=== PATIENT | female | born 1930 | race Caucasian/White ===

== ENCOUNTER 2017-03-26 21:14 | Inpatient (IN) | payer MEDICARE ==
[~2017-03-26] VITALS: Ht 160 cm; Wt 62.6 kg
[~2017-03-26 21:14] MED LIST: ALBU18HF IH; ALEN70TA46 PO; AMLO10TA3 PO; ATOR40TA69 PO; CALC600T12 PO; CHOL10008 PO; FERR240T5 PO; FLUT12AE8 IH; LEVO75TA36 PO; LISI-567 PO; LOPE2TAB32 PO; LORA-302 PO; METO-272 PO; MULT-1073 PO; NITR0.4T6 SL; OMEP20CA11 PO
[2017-03-26 21:20] VITALS: BP 166/78; PULSE 63; RESP 12; O2SAT 97
[2017-03-26 21:27] VITALS: BP 148/96; PULSE 61; RESP 28; O2SAT 97
--- NOTE | 2017-03-26 21:36 | ED.REPORT ---
HPI-Chest Pain 40 and Over Date of Service Mar 26, 2017 ED Provider: Finesse Martins MD The pt is an 86 y/o female with an extensive hx including hypothyroidism, HTN, asthma, and cardiovascular disease (with 3 stents) who presents to the ED complaining of gradual onset of waxing and waning chest pain since this afternoon. She describes it as a "choking feeling" and rates it 8/10 at its maximum. She took a Nitro which helped temporarily but her pain returned at 6/ 10 in severity just prior to arrival. Associated sx include back pain between her shoulder blades and shortness of breath for the last two days. The pt also took Albuterol prior to arrival but it did not provide any relief. She also reports mild abdominal pain. She denies cough, nausea, vomiting, and diaphoresis. She has never experienced similar sx before. Treadle Cut Off Saw Operator: Dr. Tierney Nursing Notes Stated Complaint: TROUBLE BREATHING, BACK PAIN Chief Complaint: Chest Pain Nursing Notes Reviewed: Yes Allergies: Coded Allergies: No Known Allergies (Verified Allergy, Unknown, 11/07/15) Scheduled Alendronate/Vitamin D3 (Alendronate/Vitamin D3) 1 Each Tablet 70 MG PO Q Saturday Amlodipine (Amlodipine) 10 Mg Tablet 10 MG PO QAM Atorvastatin Calcium (Atorvastatin Calcium) 40 Mg Tablet 40 MG PO HS Calcium Carbonate (Calcium) 600 Mg Tablet 600 MG PO QAM Cholecalciferol (Vitamin D3) (Vitamin D3) 1,000 Unit Tab.chew 1,000 UNIT PO BID Ferrous Gluconate (Ferrous Gluconate) 240 Mg Tablet 27 MG PO BID Levothyroxine (Levoxyl) 75 Mcg Tablet 75 MCG PO QAM Lisinopril (Lisinopril) 20 Mg Tablet 20 MG PO QAM Metoprolol Succinate ER (Metoprolol Succinate ER) 25 Mg Tab.er.24h 12.5 MG PO DAILY Multivits-Min/FA/Lycopene/Lut (Centrum Silver Tablet) 1 Each Tablet 1 EACH PO QAM Omeprazole (Omeprazole) 20 Mg Capsule.dr 20 MG PO BID Scheduled PRN Albuterol Sulfate (Ventolin HFA Inhaler) 200 Puff/18 Gm Inhaler 1 PUFF IH PRN For Shortness of Breath Fluticasone Propionate (Flovent HFA 110 mcg) 12 Gm Aer.w.adap 1 PUFF IH PRN For Shortness of Breath Lorazepam (Ativan) 0.5 Mg Tablet 0.5-1 MG PO HS PRN PRN Insomnia Nitroglycerin SL (Nitroglycerin SL) 0.4 Mg Tab.subl 0.4 MG SL PRN For Chest Pain Miscellaneous Medications Calcium Carbonate (Calcium) 600 Mg Tablet 600 MG PO Vit C/Vit E/Lutein/Min/Monroe-3 (Ocuvite Softgel) 1 Each Capsule 1 EACH PO General Time Seen by MD: 21:21 Chief Complaint Chest pain Hx Obtained From: Patient Arrived By: Walk-in Sudden in Onset?: Yes Onset Occurred: 5 - 8 hours ago Symptom Duration: Waxes and wanes Location: : Back: Substernal Quality: Painful Severity: Current: Pain level 6 out of 10 Severity: Maximum: Pain level 8 out of 10 Recent Healthcare: No recent doctor visit Similar Sx Previous: No Past Medical History Past Medical History PAD poor circulation asthma blood transfusions (2 units per week) for years after surgery, ended recently peripheral and central cardiovascular disease 3/6 systolic murmur hypothyroidism pneumonia arthritis COPD HTN Past Surgical History spinal stenosis cataract removal, both eyes partial colon resection renal and coronary stents (3) peripheral stents appendectomy partial hysterectomy tonsillectomy cholecystectomy tonsillectomy Smoking History Former Smoker Social History Drinks a glass of wine twice per year Alcohol Use: Denies alcohol use Other Social History: Lives alone Ambulatory Status Independent Review of Systems Respiratory: Reports: Shortness of breath, Denies: Non-productive cough Cardiovascular: Reports: Chest pain GI: Reports: Abdominal pain (mild), Denies: Nausea, Vomiting Musculoskeletal: Reports: Back pain Skin: Denies Diaphoresis Complete sys rev & neg: except as marked. Physical Exam Initial Vital Signs Vital Signs (First) Date Time Temp Pulse Resp B/P Pulse Ox O2 Delivery O2 Flow Rate FiO2 03/26/17 21:20 36.6 63 12 166/78 97 Room Air 03/27/17 01:06 2 Initial VS: Reviewed Head / Eyes: Atraumatic, Normocephalic ENT: Mucous membranes moist, Conjunctiva normal, No scleral icterus Extremities: Vascular intact, Neuro intact, No swelling, No tenderness Skin: Warm, Dry, No cyanosis Neurologic: Alert, Oriented, Nonfocal General/Constitutional: Awake, Alert, No acute distress, Well appearing, Cooperative No diaphoresis Respiratory / Chest: Atraumatic, Breath sounds = bilat, No rales, No rhonchi Wheezing / Retractions: Positive: Wheezing mild (Bilaterally) Cardiovascular: Heart rate NL, Regular rhythm, Heart sounds NL, No gallop, No murmurs, No rubs No lower extremity edema Abdomen: Atraumatic, Soft Mid abdomen is mildly tender Neck: Atraumatic, Supple, Full range of motion, No JVD Wrist / Hand: Neurologic intact, Vascular intact Left wrist in a cast. Interpretation & Diagnostics CT ANGIO ABD AND CHEST Chest: Conclusion: 1. No evidence of pulmonary embolism or thoracic aortic dissection. 2. 2cm opacity in the right lung apex could be part of the bilateral apical scarring although malignancy is not entirely excluded. CT followup in 1 to 3 months is recommended. Abdomen: Conclusion: No abdominal aortic dissection. Signed by Dr. Dov Venegas 03/27/17 01:51 Lab Results Interpretation Result Diagram: 03/27/17 0425 03/27/17 0425 Test 03/26/17 21:45 Prothrombin Time 10.0sec (8.1-12.5) Prothromb Time International Ratio 0.94ratio Activated Partial Thromboplast Time 27.1sec (22.8-33.0) D-Dimer 2.11mg/L FEU (<0.50) Total Bilirubin 0.2mg/dL (0.0-1.2) Aspartate Amino Transf (AST/SGOT) 24U/L (0-50) Alanine Aminotransferase (ALT/SGPT) 13U/L (0-32) Alkaline Phosphatase 64U/L (25-165) Total Creatine Kinase 170U/L (21-215) Creatine Kinase MB 7.1ng/mL (0.0-5.3) Creatine Kinase MB % 4.2% (0.0-5.0) Pro-B-Type Natriuretic Peptide 474.5pg/mL (0-738) Total Protein 6.9g/dL (6.4-8.4) Albumin 4.2g/dL (3.4-5.0) Hold Saha Top Tube Received (Received) Digoxin Level 0.3nG/mL (0.9-2.0) ECG Interpretation ECG Interpretation: Normal sinus rhythm. Rate 63. Right bundle branch block. No significant changes from previous ECG. Time: 21:21 Interpreted by: ED physician X-Ray Chest Interpretation Chest Xray Interpretation: IMPRESSION: Acute disease is not seen in the upright portable chest. Dictated by: Damon Waddell M.D. on 03/26/2017 at 22:01 Approved by: Damon Waddell M.D. on 03/26/2017 at 22:02 View: Portable, 1 view Interpretation / Wet Read by: Interpret - Radiologist Re-Eval/Medical Decision Med Decision/Clinical Course 86-year-old female with known coronary disease and three stents presents with pain in her back between her shoulder blades and chest pressure. EKG does not show STEMI criteria but is a right bundle-branch block. Chest x-ray is benign. D-dimer is elevated. CT angiogram dissection protocol looking for pulmonary embolus and dissection was negative for these issues. Incidental upper lung lesions require follow-up. Pain is been waxing and waning but responding to morphine. Admitted now for completion of rule out rule out protocol with a slightly elevated troponin. She has renal insufficiency was prehydrated for her dye study, and requires additional hydration post. Source of Hx: Old records Time of Eval: 01:38 Re-Evaluation/Progress Note: Rechecked pt. Discussed lab results, imaging results,diagnosis and plan to admit. Pt understands and agrees with the plan for admission. All questions addressed. Consultation : Referral / Consult Name: Audelia Bernal DO Consulted With: Hospitalist Call Returned at: 02:06 Bedspring Assembler: Will see patient, Agrees with eval, Agrees with plan, Accepts admit Counseled Regarding: Diagnosis, Lab results, Need for admission Discharge & Departure Primary Impression: Chest pain Additional Impressions: Asthma Elevated troponin Renal insufficiency Disposition: ADMITTED TO HOSPITAL Discharge Condition All VS Reviewed: Yes Condition: Improved Referrals: Maxi Soriano MD (PCP) Taty Tierney MD Crit Care Except Billable Proc Time Spent: 30-74 minutes (thirty minutes) Services Performed: Patient management by me, Time spent at bedside, Reviewing test results, Reviewing imaging, Discussing patient care, Documentation in record, Time with fam/surrogate, Other (arranging admission) Scribe Attestation Portions of this note were transcribed by Wilda Butts. I,, personally performed the history, physical exam and medical decision-making;I reviewed and confirmed the accuracy of the information in the transcribed note. Signed by Maribell Saxena. 03/26/17 copies to: Maxi Soriano MD; Taty Tierney MD, Christopher W MD Mar 26, 2017 21:36 Wilda Butts Mar 26, 2017 21:53 ECG Interpretation ECG Interpretation: Normal sinus rhythm. Rate 63. Right bundle branch block. No significant changes from previous ECG. Time: 21:21 Interpreted by: ED physician X-Ray Chest Interpretation Chest Xray Interpretation: IMPRESSION: Acute disease is not seen in the upright portable chest. Dictated by: Damon Waddell M.D. on 03/26/2017 at 22:01 Approved by: Damon Waddell M.D. on 03/26/2017 at 22:02 View: Portable, 1 view Interpretation / Wet Read by: Interpret - Radiologist Re-Eval/Medical Decision Source of Hx: Old records Time of Eval: 01:38 Re-Evaluation/Progress Note: Rechecked pt. Discussed lab results, imaging results,diagnosis and plan to admit. Pt understands and agrees with the plan for admission. All questions addressed. Consultation : Referral / Consult Name: Audelia Bernal DO Consulted With: Hospitalist Call Returned at: 02:06 Bedspring Assembler: Will see patient, Agrees with eval, Agrees with plan, Accepts admit Counseled Regarding: Diagnosis, Lab results, Need for admission Discharge & Departure Primary Impression: Chest pain Additional Impression: Asthma Ruled Out: Myocardial infarct Disposition: ADMITTED TO HOSPITAL Discharge Condition All VS Reviewed: Yes Referrals: Maxi Soriano MD (PCP) Taty Tierney MD Attestation Portions of this note were transcribed by Wilda Butts. I,, personally performed the history, physical exam and medical decision-making;I reviewed and confirmed the accuracy of the information in the transcribed note. Signed by Maribell Saxena. 03/26/17 copies to: Maxi Soriano MD; Taty Tierney MD, Christopher W MD Mar 26, 2017 21:36 Wilda Butts Mar 26, 2017 21:53
[2017-03-26] MEDS ORDERED: Nitroglycerin 2% 1 Gm Ointment TOPICAL ONE (21:50)
[2017-03-26 21:57] LABS: BASOPHILS % (AUTO) 0.5 % (0-3); EOSINOPHILS % (AUTO) 1.6 % (0-5); MONOCYTES % (AUTO) 10.3 % (4-12); Mean Corpuscular Hemoglobin 29.5 pg (27.0-35.0); Mean Corpuscular Volume 91.9 fL (81-100); NEUTROPHILS % (AUTO) 71.4 % (40-74); Platelet Count 296 bil/L (150-400)
--- NOTE | 2017-03-26 22:04 | DRSVH ---
PROCEDURE: X-RAY CHEST ONE VIEW, PORTABLE ([id number]) INDICATIONS: CHEST PAIN TECHNIQUE: One view of the chest was acquired. COMPARISON: [facility], CR, XR CHEST 2VW, 11/09/2015, 13:52. FINDINGS: Surgical changes and devices: bakery helper leads are present over the chest Lungs and pleura: No pleural effusions or pneumothorax. Lungs are clear. Mediastinum: Mediastinal contours appear normal. Heart size is normal. Bones and chest wall: No suspicious bony lesions. Overlying soft tissues appear unremarkable. IMPRESSION: Acute disease is not seen in the upright portable chest. Dictated by: Damon Wadedll M.D. on 03/26/2017 at 22:01 Approved by: Damon Waddell M.D. on 03/26/2017 at 22:02
[2017-03-26] MEDS: MeTOProlol 1 mg/mL 5 mL Inj IVPUSH PRN (22:05)
[2017-03-26 22:08] VITALS: BP 86/46; PULSE 62; RESP 20; O2SAT 94
[2017-03-26 22:16] LABS: D-Dimer 2.11 mg/L FEU (<0.50); INR 0.94 ratio
[2017-03-26 22:44] LABS: TROPONIN T 0.011 ug/L (0.0-0.011)
[2017-03-26 22:53] LABS: Magnesium 2.1 mg/dL (1.6-2.6)
[2017-03-26 22:56] VITALS: BP 144/71; PULSE 59; RESP 20; O2SAT 97
[2017-03-26 23:05] VITALS: BP 92/48; PULSE 73; RESP 18; O2SAT 94
[2017-03-26] MEDS ORDERED: 0.9% Sodium Chloride 1,000 ML IV ONE (23:25)
[2017-03-27] VITALS (12 sets, daily range): BP systolic 94–176; BP diastolic 52–90; PULSE 47–83; RESP 16–24; O2SAT 92–100
[2017-03-27] MEDS: MeTOProlol 1 mg/mL 5 mL Inj IVPUSH PRN ×2 (01:06→01:12)
[2017-03-27] MEDS ORDERED: Ondansetron 2 mg/mL 2 mL Inj IVPUSH PRN ×2 (02:20→02:25)
[2017-03-27] MEDS ORDERED: Polyethylene Glycol (PEG) 17 Gm Powder PO PRN (02:20)
[2017-03-27] MEDS ORDERED: Senna-Docusate 8.6-50 mg Tablet PO PRN (02:20)
[2017-03-27] MEDS ORDERED: Alum-Mag Hydrox-Simeth 30 mL Suspension PO PRN ×2 (02:20→02:25)
[2017-03-27] MEDS ORDERED: Lactated Ringer's 1,000 ML IV SCH (02:21)
[2017-03-27] MEDS ORDERED: diphenhydrAMINE 25 mg Capsule PO PRN (03:30)
[2017-03-27] MEDS: 0.9% Sodium Chloride 1,000 ML IV SCH ×2 (03:33→10:51)
--- NOTE | 2017-03-27 03:42 | PCM.HPMED ---
Subjective Date of Service Mar 27, 2017 Primary Provider: Admitting Physician: Audelia Bernal DO Primary Care Physician: Maxi Soriano MD Attending Physician: Audelia Bernal DO Chief Complaint: Stabbing back pain History of Present Illness: 86-year-old woman with history of coronary artery disease status post 3 stent placement, chronic GI bleeding necessitating blood transfusion every 4-6 weeks for the last 12 years, peripheral artery disease, hypertension, hypothyroidism, COPD, presents after having 8 out of 10 stabbing back pain. She describes it as awakening her from sleep earlier this afternoon felt like there is something in her back and she tried to ignore it however it continued to grow in intensity , 2 hours after onset of pain she took nitroglycerin which she said helped the pain. She contacted her daughter who advised her to go to the emergency department, and while in the emergency department she began to once again have stabbing back pain. She additionally describes having a choking sensation that has been coming and going over the last 4 days, described as "I could not catch my breath." She endorsed shortness of breath, and took a puff of her albuterol inhaler but said that it did not help. She is not on any blood thinners secondary to her chronic blood loss anemia. She reports that in the previous weeks her hemoglobin and hematocrit had remained stable and she has not needed a transfusion. She denies any lightheadedness, dizziness, cough, endorses diarrhea, denies any red or black stools. In the emergency department she was given nitroglycerin metoprolol 5 mg IV 3, 81 mg aspirin by mouth, and at the time of admission states that she feels a mild discomfort in her anterior chest but not a pain. On presentation to the emergency department 36.6 Celsius, 63, 12, 166/78, 97% on room air. Blood pressure decreased and is now in the low 100s, mid 90s systolic. Heart rate has mostly been below 60, she states this is normal and denies any symptoms. WBC 9.6, hemoglobin 9.8. Bicarbonate 16, BUN 43, creatinine 1.66, glucose 106. CK-MB 7.1, troponin 0.011, BNP 474. INR 0.94, d-dimer 2.11 digoxin 0.3 EKG: Heart rate 63, normal sinus, left axis deviation, right bundle branch block , VT 204, QTC 452, T-wave inversions in leads V1, V2. Chest x-ray did not show acute disease. Chest and abdomen CT with contrast are performed to evaluate for pulmonary embolism, aortic dissection, these were interpreted as negative for both. Patient was admitted to [facility] on telemetry for further evaluation unstable angina. Review of Systems: A comprehensive review of systems was conducted with the patient and found to be negative except as above in the history of presenting illness. Allergies Coded Allergies: No Known Allergies (Verified Allergy, Unknown, 11/07/15) Home Medications Scheduled Alendronate/Vitamin D3 (Alendronate/Vitamin D3) 1 Each Tablet 70 MG PO Q Saturday Amlodipine (Amlodipine) 10 Mg Tablet 10 MG PO QAM Atorvastatin Calcium (Atorvastatin Calcium) 40 Mg Tablet 40 MG PO HS Calcium Carbonate (Calcium) 600 Mg Tablet 600 MG PO QAM Cholecalciferol (Vitamin D3) (Vitamin D3) 1,000 Unit Tab.chew 1,000 UNIT PO BID Ferrous Gluconate (Ferrous Gluconate) 240 Mg Tablet 27 MG PO BID Levothyroxine (Levoxyl) 75 Mcg Tablet 75 MCG PO QAM Lisinopril (Lisinopril) 20 Mg Tablet 20 MG PO QAM Metoprolol Succinate ER (Metoprolol Succinate ER) 25 Mg Tab.er.24h 12.5 MG PO QAM Multivits-Min/FA/Lycopene/Lut (Centrum Silver Tablet) 1 Each Tablet 1 EACH PO QAM Omeprazole (Omeprazole) 20 Mg Capsule.dr 20 MG PO BID Scheduled PRN Albuterol Sulfate (Ventolin HFA Inhaler) 200 Puff/18 Gm Inhaler 1 PUFF IH PRN For Shortness of Breath Fluticasone Propionate (Flovent HFA 110 mcg) 12 Gm Aer.w.adap 1 PUFF IH PRN For Shortness of Breath Loperamide (Loperamide) 2 Mg Tablet 2 MG PO PRN For Diarrhea or Loose Stool Lorazepam (Ativan) 0.5 Mg Tablet 0.5-1 MG PO HS PRN PRN Insomnia Nitroglycerin SL (Nitroglycerin SL) 0.4 Mg Tab.subl 0.4 MG SL PRN For Chest Pain PMH PAD poor circulation asthma blood transfusions (2 units per week) for years after surgery, ended recently peripheral and central cardiovascular disease 3/6 systolic murmur hypothyroidism pneumonia arthritis COPD HTN Surgical History spinal stenosis cataract removal, both eyes partial colon resection renal and coronary stents (3) peripheral stents appendectomy partial hysterectomy tonsillectomy cholecystectomy Family History Mother when patient was 3 months old, reports significant cardiovascular mortality on her side of the family Father and his 5 brothers from myocardial infarctions, father's age of 76. Social History Hx Alcohol Use: Yes (On special occasion only) Hx Substance Use: No Hx Tobacco Use: Yes (quit 30 plus years ago) Smoking Status: Former Smoker (quit in 1989) Exam Vital Signs Vital Sign - Last Date Time Temp Pulse Resp B/P Pulse Ox O2 Delivery O2 Flow Rate FiO2 03/27/17 02:23 50 22 95/52 97 Nasal Cannula 2 03/26/17 21:20 36.6 Intake and Output 03/26/17 03/26/17 03/27/17 Cumulative From/Thru 15:00 23:00 07:00 03/26/17 21:20 - 03/27/17 03:20 Intake Total 999 ml 999 ml Balance 999 ml 999 ml Intake IV Total 999 ml 999 ml Exam General: Laying in bed, no apparent distress. Appears age-appropriate HEENT: Normocephalic, atraumatic, EOMI grossly, neck is supple with out lymphadenopathy, mucous membranes moist conjunctiva pale-pink. Cardiovascular: Regular rate and rhythm, up-stroking 3/6 systolic murmur throughout precordium. Unable to appreciate dorsal pedalis bilaterally, right radial pulse 2/4, orthopedic cast obstructing left radial artery assessment. Feet were warm. Pulmonary: Clear to auscultation bilaterally, expiratory wheeze throughout lung berumen, no rhonchi, no cough. Abdominal: Soft to palpation, bowel sounds present 4, no hepatosplenomegaly. Negative rebound. No pulsating masses Extremities: No edema appreciated. No tenderness, asymmetry. There is an orthopedic cast to the left forearm and left wrist. Neuro: Neurologically grossly intact, strength is equal bilaterally upper and lower extremities. MSK: Gait is normal, able to move extremities on their own volition, strength 5 out of 5 equal bilaterally to upper and lower extremities. Psych: A and O 4, affect was appropriate and congruent. Lab and Diagnostics Result Diagram: 03/26/17214403/26/[id number] X-Rays, CTs and MRIs Chest x-ray performed 03/26/2017 IMPRESSION: Acute disease is not seen in the upright portable chest. Dictated by: Damon Waddell M.D. on 03/26/2017 at 22:01 CT angiogram chest performed 03/27/2017 Conclusion: 1. No evidence of pulmonary embolism or thoracic aortic dissection. 2. 2cm opacity in the right lung apex could be part of the bilateral apical scarring although malignancy is not entirely excluded. CT followup in 1 to 3 months is recommended. Abdomen: Conclusion: No abdominal aortic dissection. Signed by Dr. Dov Venegas 03/27/17 01:51 cork cutter radiology 12-lead ECG EKG: Heart rate 63, normal sinus, left axis deviation, right bundle branch block , VT 204, QTC 452, T-wave inversions in leads V1, V2. Assessment & Plan 86-year-old woman with history of coronary artery disease, peripheral artery disease, chronic GI bleed preventing anticoagulation and antiplatelet therapy presents with stabbing chest pain worsening over 2 hours, radiation through her chest to between her shoulder blades evaluated for aortic dissection, and pulmonary embolism, which evaluation did not suggest. Substantial risks factors with concerning clinical presentation and a not negative troponin, elevated CK-MB, admitted for NSTEMI versus unstable angina and further workup. Acute unstable angina, present on admission, active Chest pain with radiation through her chest, significant CAD factors, family history, history of stent placement, not on blood thinners, not on antiplatelet therapy. EKG no substantial ST changes. Elevated CK-MB NICKO Score calculated to be 5, conferring a 26% risk of 14 days all cause mortality. Troponins to trend ECHO in the a.m. Pharmacologic stress test in the morning Antiplatelets anticoagulation Contraindicated secondary to chronic GI bleed necessitating chronic blood transfusions. Received 81 aspirin prior to admission Lipid panel ordered for the morning Statin: Atorvastatin 40 mg -continue from ambulatory Beta Marlon: Metoprolol 12.5 mg daily continued from home medications - see bradycardia below Nitroglycerin 0.4 mg SL q5min PRN x3, Morphine 10 mg/ml syringe 1-5 mg IV push q5min PRN O2 if needed Acute on chronic anemia secondary to chronic GI bleed, present on admission, active Hemoglobin 9.8, hematocrit 30.5. Reports "my deck lid fitter said he did not want me to have a hematocrit less than 30 and would receive blood transfusions every 4-6 weeks for years " Has undergone bowel resections, 2 pill cam studies without diagnosis. Hemoccult Cross match and hold 2 units As patient is receiving continuous fluids I am anticipating a drop in her a.m. hemoglobin and hematocrit, patient is asymptomatic at this time. Acute on chronic kidney injury, present on admission, active Creatinine 1.66, review of previous labs showed creatinine to be elevated but not typically this high since admission in October 2015. CTD stage III per outpatient records Normal saline 80mL per hour Reassess with a.m. labs Monitor closely following IV contrast for PE evaluation. 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 Patient reports deck lid fitter adjusted metoprolol to 12-1/2 mg twice a day just recently. Continue to monitor, placed on telemetry. A.m. beta marlon being held in anticipation of pharmacologic stress test. Will see if any change in VT interval or heart rate in the absence of beta marlon. COPD, present on admission, stable Continue home medications Flovent and albuterol when necessary. Given concern for myocardial ischemia, SPO2 goal increased to greater than 92%, less than 99%. Patient is noted to inpatient status with greater than 2 midnights anticipated stay based on presenting symptoms, complexity of care and anticipated risk of adverse events. DVT prophylaxis with SCDs Bowel regimen as needed Pain management acetaminophen. CODE STATUS discussed with patient, wishes to be DNR/DNI, states she has a signed living will reflecting these wishes. Pain Evaluation: Adequate Pain Control GI Prophylaxis: Not indicated VTE Prophylaxis Indicated: Contraindicated Resuscitation Status: DNR/DNI:Do Not Resuscitate/Intubate Attending Statement The patient was seen and examined together with house staff on 03/27/2017 and I agree with the history, exam and plan as outlined in the note above. Arpit Bajwa DO Mar 27, 2017 03:42 Audelia Bernal DO Mar 27, 2017 05:10
[2017-03-27 03:55] LABS: APPEARANCE,URINE CLEAR (CLEAR,HAZY); COLOR,URINE STRAW (YELLOW); OCCULT BLOOD,URINE NEGATIVE (NEGATIVE); PH,URINE 5.5 (5.0-8.0); UROBILINOGEN,URINE NORMAL (NORMAL)
[2017-03-27] MEDS ORDERED: METO25TA99 PO (03:56)
[2017-03-27] MEDS ORDERED: CALC600T12 PO (03:56)
[2017-03-27] MEDS ORDERED: VIT1CAPS8 PO (03:56)
[2017-03-27 04:33] LABS: BASOPHILS % (AUTO) 0.5 % (0-3); EOSINOPHILS % (AUTO) 1.8 % (0-5); MONOCYTES % (AUTO) 11.6 % (4-12); Mean Corpuscular Hemoglobin 29.3 pg (27.0-35.0); Mean Corpuscular Volume 92.7 fL (81-100); NEUTROPHILS % (AUTO) 73.4 % (40-74); Platelet Count 256 bil/L (150-400)
[2017-03-27] MEDS ORDERED: Fluticasone 100 mCg Inhaler INHALATION PRN (04:35)
--- NOTE | 2017-03-27 04:41 | NUR ---
NOC/Admit Pt admitted to [facility] room 3003. Upon arrival pt denies chest pain, sob, n/v or abd discomfort. IVF NS running 80mls/hr as ordered. 12-lead EKG: SR, with LBBB. MD is aware and ordered Cardiac stress test (Cyn Scan). Explained about the upcoming test to the pt and was put on NPO. Pt verbalizes understanding. Continuing to monitor.
[2017-03-27] MEDS: Multivit-Miner-Folic Acid-Iron Tablet PO SCH (08:03)
[2017-03-27] MEDS: Pantoprazole 20 mg ER24 Tablet PO SCH ×2 (08:03→17:28)
[2017-03-27] MEDS: Calcium Carbonate (Oyster Shell) 500 mg Tablet PO SCH (08:03)
[2017-03-27] MEDS: Sodium Chloride LOK Flush 10 mL Syringe IVFLUSH SCH ×3 (08:04→20:15)
[2017-03-27] MEDS ORDERED: MeTOProlol XL 25 mg ER24 Tablet PO SCH (08:30)
--- NOTE | 2017-03-27 09:12 | NUR ---
Social Work-initial assessment: Data:See initial assessment. Pt is a 86 y/o female who was admitted on 03/27/17 for chest pain per H&P. Pt's insurance is [employer] and PCP is Maxi Soriano MD. EMR reviewed. GERSON met with pt and daughter Michaelle [phone] at bedside, SW role explained. Pt is alert and oriented x3. pt resides a in mobile home on her daughter's property with 8 steps to enter. Pt drives and does not use any DME. Pt has no HH or SNF history. Pt has no core sticker care insurance or VA benefits. SW discussed DPOA/ advanced directive, pt confirms she has completed this, SW encouraged a copy to be brought in. Pt discussed in rounds, no concerns around pt's capacity for self care, pt has been up independent in her room and is able to follow instructions. SW provided pt and daughter with discharge planning checklist and encouraged them to call with any questions, phone number provided on the board. Pt's daughter will provide transport home. No anticipated discharge needs. SW will continue to follow if needs arise. Assessment:Pt who is independent at baseline. Plan:Pt to discharge home when medically stable via POV. No anticipated discharge needs. SW will continue to follow if needs arise. VARSHA Cagle Addendum: 03/27/17 at 0916 by NORBERT DE LA CRUZ SS Amended: Links added.
--- NOTE | 2017-03-27 10:44 | PCM.PNMED ---
Subjective Date of Service Mar 27, 2017 Subjective The patient was seen and examined. Lap test results, imaging studies were reviewed with the patient and her daughter in details. I also discussed possible further tests like nuclear medicine scan, cardiac catheterization, goals of care. Patient does not want to proceed with nuclear medicine stress test, her kidney function is low and she would not like to have cardiac catheterization which requires IV contrast that may damage her kidneys. Patient has history of chronic GI bleeds. She is not able to tolerate aspirin, Plavix or heparin drip. She would like to continue with medical management. Also discussed CODE STATUS with the patient. She informed that she would not like to be resuscitated. Patient declined intubation, chest compressions, defibrillation, chemical code. Her morning blood pressure meds were held because her blood pressures were running low. Troponin is only mildly elevated and stable. I will continue with IV fluids, do echo, monitor the patient in the hospital and adjust her meds according to her blood pressure. Exam Vital Signs Vital Sign - Last Date Time Temp Pulse Resp B/P Pulse Ox O2 Delivery O2 Flow Rate FiO2 03/27/17 10:18 57 03/27/17 08:55 36.4 16 138/68 92 Room Air 03/27/17 02:23 2 Intake and Output 03/26/17 03/26/17 03/27/17 Cumulative From/Thru 15:00 23:00 07:00 03/26/17 21:20 - 03/27/17 05:42 Intake Total 999 ml 999 ml Output Total 350 ml 350 ml Balance 649 ml 649 ml Intake Oral 0 ml 0 ml IV Total 999 ml 999 ml Output Urine Total 350 ml 350 ml Exam PHYSICAL EXAM: GENERAL: Alert, not in distress, cooperative HEAD: atraumatic, normocephalic, no bruises. EYES: DANA, EOMI, anicteric, able to fully open and close eyelids SKIN: Skin color normal, turgor normal. No visible rashes or lesions. EAR, NOSE, MOUTH, THROAT: Lips, oral mucosa, tongue gums, oropharynx are moist , pink, no lesions. NECK: supple ROM normal. RESPIRATORY: Lungs clear to auscultation. Good diaphragmatic excursion. Normal percussion sound. CARDIAC: normal S1 and S2; no rubs, murmurs, or gallops; regular rate and rhythm ABDOMEN: Abdomen soft, tender. BS normal. No masses or organomegaly. MUSCULOSKELETAL: ROM full, muscles are not tender EXTREMITIES: no pitting edema in LE, no new deformities or skin discoloration. NEURO: Alert, oriented X 3, Sensation grossly intact., Cranial nerves II-XII intact, Grossly normal motor function. PULSES: 2+ radial, 2+ carotid REVIEW OF SYSTEMS: GENERAL: no malaise, no fevers., SEE HPI HEENT: Negative for frequent or significant headaches All other reviewed and negative other than HPI. IVs and Medications Medications Reviewed: Medications were reviewed in detail Lab and Diagnostics Result Diagram: 03/27/175 03/27/175 X-Rays, CTs and MRIs Chest x-ray performed 03/26/2017 IMPRESSION: Acute disease is not seen in the upright portable chest. Dictated by: Damon Waddell M.D. on 03/26/2017 at 22:01 CT angiogram chest performed 03/27/2017 Conclusion: 1. No evidence of pulmonary embolism or thoracic aortic dissection. 2. 2cm opacity in the right lung apex could be part of the bilateral apical scarring although malignancy is not entirely excluded. CT followup in 1 to 3 months is recommended. Abdomen: Conclusion: No abdominal aortic dissection. Signed by Dr. 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 Assessment & Plan 86-year-old woman with history of coronary artery disease, peripheral artery disease, chronic GI bleed preventing anticoagulation and antiplatelet therapy presents presented with chest pain, radiation through her chest to between her shoulder blades. Patient was evaluated for aortic dissection, and pulmonary embolism with CT scan of chest and abdomen, official report is pending though in the H&P it says that it was ruled out. Troponin is mildly elevated and stable. Unstable vs Stable angina. 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 - chest pain improved - Troponin mildly elevated - patient can not take aspirin, Plavix, heparin drip secondary to ongoing chronic GI bleed Plan - Hold BP meds because blood pressure is low - Continue with IV fluids - Echo - Discontinue Pharmacologic stress test per patient/family wishes - c/w Atorvastatin 40 mg Chronic GI bleed - stable - mild worsening of him hemoglobin today is most likely secondary to IV hydration - Patient is not reporting any worsening in her chronic GI bleed - will monitor Acute on chronic kidney injury - improving - Patient received CT chest and abdomen with contrast yesterday Plan - Continue with IV fluids, monitor for signs of respiratory distress COPD - Stable - Continue with current meds Patient is noted to inpatient status with greater than 2 midnights anticipated stay based on presenting symptoms, complexity of care and anticipated risk of adverse events. DVT prophylaxis with SCDs Bowel regimen as needed Pain management acetaminophen. Code status: I discussed with the patient code status, we talked in details about intubation, chest compressions, defibrillations, chemical code. All questions answered. Patient verbalized understanding. Patient would like to be full code. Patient declined intubation, chest compressions, defibrillations and other electrical shocks, chemical code. Patient and family are aware that patient/POA may change code status at any time. Disposition: discharge in 1-3 days after patient improves. Labs, radiology tests, Tele and ECG reviewed. Plan of care, medication side effects, home medication, diagnostic procedures and available alternatives were discussed and reviewed with patient. All questions answered. Patient verbalized understanding, approved and agreed to plan of care. Given patient's current condition, I certify, in my opinion inpatient services greater than two midnights are medically necessary for this patient. Please see H&P and MD progress notes for additional information about patient's course of treatment. GI Prophylaxis: Not indicated VTE Mechanical Devices: Intermittant Pneumatic CD Resuscitation Status: DNR/DNI:Do Not Resuscitate/Intubate Maximino Rodriguez MD Mar 27, 2017 10:44 Maximino Rodriguez MD Mar 27, 2017 10:44
--- NOTE | 2017-03-27 11:16 | DRSVH ---
PROCEDURE: CT ANG CHEST/ABD W/WO CONTRAST ([id number]) INDICATIONS: elevated dimer, possible dissectiion vs pe TECHNIQUE: Precontrast 5 mm thick sections acquired from the lung apices to the iliac crests. After the adminis tration of intravenous contrast, 3 mm thick sections again acquired from the lung apices to the iliac crests. 3-dimensional maximum intensity projection (MIP) oblique sagittal and coronal reformats wer e then acquired, and/or 3-dimensional volume rendering reformats. For radiation dose reduction, the following was used: automated exposure control. COMPARISON: CT, KUB - CT ([facility]), 07/18/2006, 14:02. [facility], CT, PELVIS W/O CONTRAST, 12/08/2012, 11:06. FINDINGS: Image quality: Excellent. AORTA: Intramural hematoma: Absent Maximum hematoma thickness: Not applicable. Focal contrast enhancement: Intramural blood pool (< 2 mm neck or imperceptible communication with aortic lumen): Absent. Ulcer-like projection (broad communication with aortic lumen > 3 mm): Absent. Dissection: Absent Pernell classification: Not applicable Maximum aortic diameter: 3.7 cm. [If Pernell A dissection, > 5.0 cm has a poorer prognosis. If [place] B dissection, > 4.0 cm has a poorer prognosis.] Periaortic hematoma: Absent. CHEST: Lungs and pleura: Biapical pleural-parenchymal scarring noted. There is a 2.2 cm groundglass opacity with associated 1.6 cm solid component. Subpleural scarring noted in the upper lobes bilaterally. No pleural effusions or pneumothorax. Calcified granuloma noted in the right lung base. Central and per ipheral airways are patent and normal in caliber. Mediastinum: Heart size is normal. Atherosclerotic calcifications are noted in the aorta, great vess els and the coronary vasculature. No pericardial effusion. No mediastinal or hilar adenopathy by siz e criteria. Central pulmonary arteries are normal in size. Esophagus is normal in caliber. Small hi atal hernia noted.. Bones and chest wall: No axillary adenopathy by size criteria. Thyroid gland is within normal limit s. No suspicious bony lesions. No vertebral body compression fractures. ABDOMEN: Vasculature: Celiac trunk and mesenteric arteries are patent. Renal arteries are also patent. Solid organs: Liver and spleen are normal in size. The calcifications noted in the liver which are s table compared to 07/18/2006. Small cyst or hemangioma noted in the spleen Gallbladder is absent. B iliary system is non dilated. Pancreas enhances normally. No adrenal nodules. Both kidneys are nor mal in size and enhancement, without hydronephrosis. Bilateral renal cysts noted. Peritoneum and bowel: No free fluid or air. Bowel loops are normal in caliber and wall thickness. A nastomotic suture is noted in right lower quadrant loops of bowel; please correlate with surgical his tory. Calcified lymph node at the gastroesophageal junction. Moderate fecal loading noted throughout the colon. Nodes and vessels: No retroperitoneal or mesenteric adenopathy by size criteria. Inferior vena cava is normal in morphology. Dense atherosclerotic calcifications involving the abdominal and pelvic vas culature. Atherosclerotic calcifications cause approximate 70% stenosis of the infrarenal abdominal a amandeep and appear to cause significant stenosis of the common iliac arteries bilaterally. Endovascular stent noted in the origin of the right renal artery. Dense atherosclerotic calcifications noted in th e origin of the left renal artery which cause high-grade stenosis. Bones: No suspicious bony lesions. No vertebral body compression fractures. Miscellaneous: No ventral hernias. IMPRESSION: 1. No evidence of aortic dissection or pulmonary embolus. 2. 2.2 cm groundglass nodule with partial solid component. Recommend PET/CT scan to exclude malignanc y. 3. Biapical, exuberant parenchymal pleural scarring. Recommend evaluation time of PET/CT scan to excl ude underlying neoplastic process. 4. Atherosclerosis including the coronary vasculature. Atherosclerotic disease causes at least 75% st enosis of the infrarenal abdominal aorta, high-grade stenosis of common iliac arteries bilaterally an d high-grade stenosis of the left renal artery. Dictated by: Myrna Ravi MD, PhD on 03/27/2017 at 10:54 Approved by: Myrna Ravi MD, PhD on 03/27/2017 at 11:14
--- NOTE | 2017-03-27 12:24 | DRSVH ---
[facility] [address] [place] [address] Echocardiogram Report Name: ROBERT BUSCH LStudy Date: 03/27/2017 Height: 63 in Hospital Exam Location: [facility] Weight: 137 lb Gender: Other BSA: 1.6 m2 : 1930 Age: 86 yrs BP: 94/90 mmHg Reason For Study: UNSTABLE ANGINA Ordering Physician: Performed By: Ruby Anderson Referring Physician: Dr. Afsaneh Soriano Interpretation Summary 1) Normal left ventricular size, wall motion, and systolic function (EF 60- 65%). 2) Normal right ventricular size and function. 3) Mild to perhaps moderate aortic stenosis present (planimeter valve area 1.6cm2, mean gradient 28mmHg). 4) Pulmonary artery systolic pressure estimated at 34mmHg. 5) Compared to the Echo done 08/01/2015, aortic stenosis has progressed slightly. Procedure: A two-dimensional transthoracic echocardiogram with color flow and Doppler was performed. The study quality was technically adequate. Comparison is made with the echocardiogram of 08/01/2015. The patient was in sinus bradycardia with heart rates between 40-60 bpm during the exam. Left Ventricle: Left ventricular wall thickness is at the upper limits of normal. The left ventricle is normal in size. The ejection fraction is estimated to be 60-65%. Left ventricular systolic function is normal. There are no focal wall motion abnormalities. Assessment of diastolic parameters suggests a pseudonormalization pattern, consistent with elevated filling pressures. Right Ventricle: The right ventricle is normal in size and function. Atria: The left atrium is severely dilated. Right atrial size is normal. There is no Doppler evidence for an interatrial shunt. Mitral Valve: The mitral valve leaflets appear mildly thickened, but open well. There is mild mitral annular calcification. There is trace mitral regurgitation. Aortic Valve: The aortic valve is trileaflet. There is mild aortic valve sclerosis. Leaflet mobility is mildly reduced. The aortic valve area is 1.6 centimeters squared by planimetry. The peak aortic velocity on the previous exam was 2.1 m/sec. There is mild to moderate aortic stenosis. Using Pedoff probe from suprasternal notch, peak velocity across the aortic valve was 3.7m/s and mean gradient was 28.4mmHg. There is trace aortic regurgitation. There is an eccentric jet of aortic insufficiency directed against the septum. Tricuspid Valve: The tricuspid valve leaflets are thin and pliable. There is at least trace tricuspid regurgitation. The right ventricular systolic pressure is estimated at 34 mmHg assuming a right atrial pressure of 3 mm Hg. Pulmonic Valve: The pulmonic valve is normal in structure and function. There is a trace or physiologic amount of pulmonic regurgitation. Great Vessels: The aortic root is normal size. The ascending aorta is mildly enlarged. The aortic arch could not be visualized. The pulmonary is not well visualized. The IVC is of normal diameter and collapses greater than 50% with a sniff. This suggests a low right atrial pressure of 3 mm Hg. Pericardium/ Pleura There is no pericardial effusion. There is no pleural effusion. MMode/2D Measurements & Calculations LVIDd: 4.3 cm RA long axis LVOT diam LVIDs: 2.3 cm LA A2 area: 23.6 cm FS: 46.9 % LA A4 area: 22.4 cm RA area Ao root diam EPSS: 0.40 cm LA length (vol): 5.3 cm IVSd: 1.0 cm LA vol: 84.4 ml : 14.9 cm Aortic Jxn LVPWd: 1.0 cm LA vol index RA vol: 35.8 ml RA asc Aorta : 21.7 mm2 Diam: 3.5 cm IVC diam: 1.5 cm LV robles. diameter/BSA LV sys. diameter/BSA RVD1 (basal) RVD2 (mid) (cm/m^2): 2.6 (cm/m^2): 1.4 : 2.0 cm TAPSE: 2.5 cm Doppler Measurements & Calculations Ao V2 max MV E max clay MV E/A: 1.1 TR max clay : 198.8 cm/sec : 123.5 cm/sec Med Peak E' Clay : 279.7 cm/sec Ao max PG MV A max clay TR max PG : 15.8 mmHg : 112.2 cm/sec E/E' med: 20.6 : 31.3 mmHg Ao mean PG MV P1/2t: 77.2 msec Lat Peak E' Clay PA V2 max : 82.2 cm/sec LVOT Max Clay MVA(VTI): 2.4 cm2 E/E' lat: 17.3 PA mean PG : 111.4 cm/sec E/e' average PA Accel Time AILYN(I,D): 1.9 cm : 0.14 sec sev ratio MV V2 mean MV P1/2t max clay Ao V2 mean LV V1 max PG : 60.0 cm/sec : 117.7 cm/sec MV mean PG MVA(P1/2t): 2.9 cm2 Ao V2 VTI: 55.7 cmLV V1 VTI AILYN(V,D): 1.7 cm2 : 33.7 cm MV V2 VTI: 43.0 cm MV dec time : 0.27 sec PA V2 mean AILYN indexed to BSA : 62.1 cm/sec (cm^2/m^2): 1.1 Reading Physician:12:23 PM
--- NOTE | 2017-03-27 13:07 | NUR ---
Tele Per Service Attendant, pt HR dipping to low 30s with up to 4s pauses. Pt is asleep but easily awakened, appears to be asymptomatic. Pt is DNR, daughter is at bedside. Explained to her daughter what is occurring. MD has been notified. Will continue to monitor.
--- NOTE | 2017-03-27 19:41 | NUR ---
Chest pain Pt denies chest pain at rest. Describes tightness/SOB with activity that resolves with rest within 5-10 minutes. Unable to give Nitro at this time due to hypotension.
[2017-03-28] VITALS (13 sets, daily range): BP systolic 91–185; BP diastolic 47–82; PULSE 52–109; RESP 16–26; O2SAT 94–100
[2017-03-28] MEDS: LORazepam 0.5 mg Tablet PO PRN (02:45)
[2017-03-28] MEDS: Albuterol 2.5 mg/3 mL Inhalation Solution NEB PRN ×2 (03:29→10:37)
--- NOTE | 2017-03-28 04:52 | NUR ---
Chest Pain around 02:30 pt complained of CP, received PRN Tylenol with minimal effect, PRN Ativan given around 02:45. pt verbalized that her pain has increased to a 7/10 with "choking" feeling around 03:00. Morphine administered- BP elevated at that time. cable technician reported no change in rhythm but HR increased to 70s (her HR was ranging 40-50s during most of the shift). EKG obtained, prop and effects designer reported no changes to EKG. RT suggested PRN neb, given at around 03:30. pt verbalized much improvement with chest pain-pt verbalized "I can breathe", pt stated pain was only a 1/10 and then she declined any additional pain medication. call light placed within reach, using appropriately to make needs known, hourly rounding in effect.
[2017-03-28 05:44] LABS: BASOPHILS % (AUTO) 0.7 % (0-3); EOSINOPHILS % (AUTO) 2.8 % (0-5); MONOCYTES % (AUTO) 9.9 % (4-12); Mean Corpuscular Hemoglobin 29.4 pg (27.0-35.0); Mean Corpuscular Volume 93.1 fL (81-100); NEUTROPHILS % (AUTO) 71.9 % (40-74); Platelet Count 255 bil/L (150-400)
[2017-03-28] MEDS: 0.9% Sodium Chloride 1,000 ML IV SCH ×2 (06:33→14:59)
[2017-03-28] MEDS: Sodium Chloride LOK Flush 10 mL Syringe IVFLUSH SCH ×2 (08:30→16:30)
--- NOTE | 2017-03-28 08:34 | PCM.PNMED ---
Subjective Date of Service Mar 28, 2017 Subjective Patient seen and examined. She denied chest pain. Said she had some shortness of breath last time which resolved with duonbes. Vitals noted Exam Vital Signs Vital Sign - Last Date Time Temp Pulse Resp B/P Pulse Ox O2 Delivery O2 Flow Rate FiO2 03/28/17 08:10 36.5 65 22 149/72 99 Nasal Cannula 2.00 Intake and Output 03/27/17 03/27/17 03/28/17 Cumulative From/Thru 15:00 23:00 07:00 03/26/17 21:20 - 03/28/17 06:34 Intake Total 1919 ml 529 ml 3447 ml Output Total 800 ml 1150 ml Balance 1119 ml 529 ml 2297 ml Intake Oral 960 ml 960 ml IV Total 959 ml 529 ml 2487 ml Output Urine Total 800 ml 1150 ml # Bowel Movements 0 0 Exam GENERAL: Alert, not in distress, cooperative SKIN: Skin color normal, turgor normal. No visible rashes or lesions. EAR, NOSE, MOUTH, THROAT: Lips, oral mucosa, tongue gums, oropharynx are moist , pink, no lesions. RESPIRATORY: Lungs clear to auscultation. Good diaphragmatic excursion. Normal percussion sound. CARDIAC: normal S1 and S2; no rubs, murmurs, or gallops; regular rate and rhythm ABDOMEN: Abdomen soft, tender. BS normal. No masses or organomegaly. EXTREMITIES: no pitting edema in LE, no new deformities or skin discoloration. NEURO: Alert, oriented X 3, Sensation grossly intact., Cranial nerves II-XII intact, Grossly normal motor function. Lab and Diagnostics Result Diagram: 03/28/17 0515 03/28/17 0515 X-Rays, CTs and MRIs Chest x-ray performed 03/26/2017 IMPRESSION: Acute disease is not seen in the upright portable chest. Dictated by: Damon Waddell M.D. on 03/26/2017 at 22:01 CT angiogram chest performed 03/27/2017 Conclusion: 1. No evidence of pulmonary embolism or thoracic aortic dissection. 2. 2cm opacity in the right lung apex could be part of the bilateral apical scarring although malignancy is not entirely excluded. CT followup in 1 to 3 months is recommended. Abdomen: Conclusion: No abdominal aortic dissection. Signed by Dr. 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 Cardiac Echo Impressions Interpretation Summary 1) Normal left ventricular size, wall motion, and systolic function (EF 60- 65%). 2) Normal right ventricular size and function. 3) Mild to perhaps moderate aortic stenosis present (planimeter valve area 1.6cm2, mean gradient 28mmHg). 4) Pulmonary artery systolic pressure estimated at 34mmHg. 5) Compared to the Echo done 08/01/2015, aortic stenosis has progressed slightly. Assessment & Plan 86-year-old woman with history of coronary artery disease, peripheral artery disease, chronic GI bleed preventing anticoagulation and antiplatelet therapy presents presented with chest pain, radiation through her chest to between her shoulder blades. Patient was evaluated for aortic dissection, and pulmonary embolism with CT scan of chest and abdomen, official report is pending though in the H&P it says that it was ruled out. Troponin is mildly elevated and stable. Unstable angina. 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 - chest pain improved - Troponin mildly elevated at admission, trended down - patient can not take aspirin, Plavix, heparin drip secondary to ongoing chronic GI bleed Plan - Continue with IV fluids - Echo noted as above - hold metoprolol as patient is bardycardic - Discontinued Pharmacologic stress test per patient/family wishes - c/w Atorvastatin 40 mg Chronic GI bleed - stable - mild worsening of him hemoglobin today is most likely secondary to IV hydration - Patient is not reporting any worsening in her chronic GI bleed - will monitor Acute on chronic kidney injury - improving - Patient received CT chest and abdomen with contrast yesterday Plan - Continue with IV fluids COPD - Stable - Continue with current meds - duhamlet helped - CT chest findings (2.2 cm ground glass opacity) noted, patient to follow up outpatient for further work up Patient is noted to inpatient status with greater than 2 midnights anticipated stay based on presenting symptoms, complexity of care and anticipated risk of adverse events. DVT prophylaxis with SCDs Bowel regimen as needed Pain management acetaminophen. Code status: I discussed with the patient code status, we talked in details about intubation, chest compressions, defibrillations, chemical code. All questions answered. Patient verbalized understanding. Patient would like to be full code. Patient declined intubation, chest compressions, defibrillations and other electrical shocks, chemical code. Patient and family are aware that patient/POA may change code status at any time. Disposition: discharge in 1-3 days after patient improves. Labs, radiology tests, Tele and ECG reviewed. Plan of care, medication side effects, home medication, diagnostic procedures and available alternatives were discussed and reviewed with patient. All questions answered. Patient verbalized understanding, approved and agreed to plan of care. Given patient's current condition, I certify, in my opinion inpatient services greater than two midnights are medically necessary for this patient. Please see H&P and MD progress notes for additional information about patient's course of treatment. GI Prophylaxis: Not indicated VTE Mechanical Devices: Intermittant Pneumatic CD Resuscitation Status: DNR/DNI:Do Not Resuscitate/Intubate Time spent 35 mins Kris Turk MD Mar 28, 2017 08:34
[2017-03-28] MEDS: Calcium Carbonate (Oyster Shell) 500 mg Tablet PO SCH (10:32)
[2017-03-28] MEDS: Multivit-Miner-Folic Acid-Iron Tablet PO SCH (10:32)
[2017-03-28] MEDS: Pantoprazole 20 mg ER24 Tablet PO SCH ×2 (10:33→17:32)
--- NOTE | 2017-03-28 11:02 | NUR ---
Social Work-readiness for discharge: Data:EMR reviewed. Pt is on day 1 of hospitalization for chest pain per H&P. Pt is not medically stable anticipate 1-2 more days. Pt resides at home alone, but on her daughter's property. Pt has been up independent in her room. No anticipated discharge needs identified. SW will continue to follow if needs arise. Assessment:Pt who is independent at baseline. Plan:Pt to discharge home when medically stable via POV. No anticipated discharge needs identified. SW will continue to follow if needs arise. VARSHA Cagle
[2017-03-28] MEDS ORDERED: Heparin 25K Unit/500mL 0.45 NS 25,000 UNIT in IV Premix 1 EACH IV SCH (11:20)
[2017-03-28] MEDS ORDERED: Heparin 5,000 Unit/mL Inj IVPUSH PRN (11:20)
[2017-03-28] MEDS ORDERED: Nitroglycerin 2% 1 Gm Ointment TOPICAL ONE (12:00)
--- NOTE | 2017-03-28 12:06 | NUR ---
Post 1 dose of oral nitro Addendum: 03/28/17 at 1206 by GALO FOSTER RN Amended: Links added.
[2017-03-28] MEDS ORDERED: Nitroglycerin 2% 1 Gm Ointment TOPICAL SCH (12:50)
[2017-03-28] MEDS ORDERED: Ranolazine ER 500 mg ER12 Tablet PO ONE (12:50)
[2017-03-28] MEDS ORDERED: 0.9% Sodium Chloride 500 ML IV SCH (13:15)
--- NOTE | 2017-03-28 13:30 | CONS ---
[address] [address] CONSULTATION REPORT PATIENT: ROBERT BUSCH : 1930 MR#: [id number] ADMIT: 03/27/2017 JOB ID: [id number] CARDIOLOGY CONSULTATION: DATE OF SERVICE: 03/28/2017 HISTORY OF PRESENT ILLNESS: This patient is an 86-year-old patient with a long history of chronic ischemic and peripheral arterial disease that I have been asked to see to assist with the management of unstable angina. The patient presented with symptoms of fatigue, and possible anginal symptoms or exertional dyspnea in 1999 in [place]. She was referred to [facility] in [place] for evaluation and stress test suggested underlying ischemic heart disease. Coronary angiography at that time demonstrated significant disease involving the mid and distal right coronary artery with only moderate atherosclerotic plaque involving her circumflex and LAD. She underwent several stent placements to the mid and distal right coronary artery. In 2002, she presented with recurrent symptoms and repeat angiography showed moderate in-stent restenosis with an abnormal fractional flow reserve. Consideration was given to further intervention but this apparently was not done given her history of recurrent GI bleeding and intolerance to aspirin and Plavix. 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 Again she has had recurrent severe GI bleeds on occasion requiring multiple transfusions and life-threatening bleeding on occasion. This patient has a history of severe peripheral arterial disease with bilateral occlusions of both superficial femoral arteries. She has had both iliacs stented; both internal and external and underwent stenting to an infrarenal aortic stenosis several years ago in [place]. She has undergone a previous left carotid endarterectomy and has known moderately severe bilateral carotid lesions, so she has never had an ischemic event from that. Her most recent echocardiogram was yesterday in the hospital and this demonstrated normal ventricular size and function with no regional wall motion abnormalities and evidence of mild aortic stenosis. The patient states that yesterday she developed fairly severe intrascapular back discomfort which was associated with symptoms of dyspnea and the discomfort radiated to her anterior chest as well. Her relative gave her a sublingual nitroglycerin and it seemed to improve, although did not resolve and so she was brought to the emergency department where she received additional medications and her discomfort gradually improved. She was admitted for further investigation, though was aware that any time she got up to go to the bathroom or do anything in her room, she would have symptoms of dyspnea as well as recurrent anterior precordial pressure-like chest discomfort. About an hour ago, she developed recurrent fairly severe anterior precordial chest discomfort with radiation into her back associated with dyspnea but without diaphoresis or nausea. She was treated with nitrates and morphine and oxygen. Her EKG demonstrated some mild diffuse nonspecific inferolateral ST-segment changes, and at that time I was asked to consult. At the time of my visit she stated that her anterior precordial pressure-like chest discomfort had resolved, though at the end of our visit it would have returned and was gradually getting a bit worse. The patient's examination, generally her blood pressure has been moderately high but has been quite variable. Earlier this morning when she was in pain, it was up to 191, but after some nitroglycerin it was down as low as 91/56. Heart rates have been in the 60-70 range, although she has had some in the 50s as well and she states that she was seen recently in our office by Dr. Tierney about a month ago, who cut back on her Toprol from 25 mg a day to 12.5 mg daily because of asymptomatic bradycardia. In general, the patient is quite limited as she can walk only very short ways before she develops symptoms of exertional dyspnea and claudication. She has intermittent episodes of rest pain in both lower extremities which is helped by getting out of bed and walking around the room just a bit. She has never had a stroke or TIA like symptoms and denies any recent GI bleeding issues. PHYSICAL EXAMINATION: Her exam is otherwise notable for a delightful 86-year-old, who provides a good history. She does not appear in acute distress at this time. She is 5 feet 3 inches tall and weighs 134 pounds. Body mass index of 24.3. HEENT examination is unremarkable. She has bilateral prominent carotid bruits. Her carotid upstroke is in fact normal in amplitude and upstroke velocity. She has bilateral subclavian bruits. Her lungs are clear. Cardiac auscultation is notable for grade II/ mid-peaking systolic ejection murmur heard along the left sternal border. No diastolic murmur is noted. She has abdominal and femoral bruits. Pulses below the groin are absent. Distal extremities however are warm and well perfused. She has no focal neurologic or musculoskeletal findings. LABORATORY DATA: Notable for stable hemoglobin of around 9.8, platelet and white cell counts are normal. Chemistries demonstrate creatinine on admission of 1.6 and this morning 1.08. Electrolytes are normal. Her troponin levels are elevated in the indeterminate range. Her cholesterol is 123 with an LDL cholesterol of 49, triglyceride level is moderately increased at 186. TSH level is normal. IMAGING: Upright portable chest x-ray shows a normal heart size and clear lung berumen. She has moderate aortic root calcification. No evidence of obvious aortic enlargement. Abdominal and chest CT scan was performed showing no evidence of aortic dissection or pulmonary embolus. There is a 2.2 cm opacity in the lungs with some pleural scarring and calcified granuloma. Atherosclerotic calcification noted. DIAGNOSTIC DATA: EKG showed right bundle branch block, normal sinus rhythm and diffuse nonspecific ST-segment changes. IMPRESSION: This patient clearly has unstable angina. Given her age, complicating severe peripheral arterial disease and her intolerance to anti-platelet therapy, this patient should be managed medically if at all possible. The patient and her daughter are in complete agreement with this approach. At this point, I have recommended anticoagulation with intravenous heparin for several days. Will apply topical nitrates and treat her current discomfort with sublingual nitrates and morphine. I would suggest that we increase her metoprolol succinate back to 25 mg a day and settle for heart rates in the 40s and 50s as long as she is not lightheaded or syncopal. Finally, I am going to recommend that we initiate therapy with ranolazine 500 mg twice a day which may be beneficial long-term with regard to her anginal symptoms. We will continue to follow her along with you during her hospital stay. It is my hope that we will be able to manage her medically without resorting to any kind of intervention which I think would be certainly very high risk.
--- NOTE | 2017-03-28 14:53 | PROG NOTE ---
[address] [address] PROGRESS NOTE PATIENT: ROBERT BUSCH : 1930 MR#: [id number] ADMIT: 03/27/2017 JOB ID: [id number] DATE: 03/28/2017 SUBJECTIVE: The patient has been having recurrent anginal symptoms at rest off and on relieved with nitrates and morphine. She was just started up on heparin therapy a little bit earlier. Her metoprolol had been held this morning and that was given about a half an hour ago and she has been started up on topical nitropaste 2 inches, which was also just started. I came back to the room to see her for followup this afternoon and she was having recurrent moderately severe anginal discomfort and dyspnea. It has been waxing and waning. During my discussion with her, her symptoms improved and the nurse also gave her an additional nitroglycerin and 2 mg of morphine. I had a talk with her and her daughter. She understands that given her age and diffuse severe vascular disease as well as renal insufficiency, there are numerous potential risks associated with proceeding with invasive cardiac catheterization and potential intervention. She is not a candidate for stent placement because of angiodysplasia and recurrent GI bleeding and, therefore, the only type of intervention might be a balloon angioplasty and she understands that there would be significant potential risks of stroke and renal failure associated with this and she is more interested in simply being managed medically. She does not wish to be resuscitated if she were to have a cardiac arrest, and if she were to develop persistent symptoms consistent with myocardial infarction, she desires aggressive medical care and pain control and would not want intervention. The daughter seems to be in agreement as well and I do not think that is at all unreasonable in this delightful 86-year-old patient with significant comorbidities. I am hopeful that aggressive medical therapy will be beneficial eventually and only a tincture of time will tell.
--- NOTE | 2017-03-28 17:55 | NUR ---
Chest pain/Tele Reports mild 2/10 chest pressure and discomfort this AM. At approx 1100, patient reported signifcant 9/10 pressure and shooting. From approx 11-1500, had multiple, intermittent episodes of reoccurring chest pain. During this time period, EKG was ordered, administered sublingual nitro multiple times, placed 2 inch nitro paste as well as 2mg IV morphine per cardiology. BP monitored, systolic BP at 90s vs 170 this AM, MD aware. Administered 500 ml NS bolus prior to 2 inch nitro paste per cardiology. 2mg IV morphine in addition to the sublingual nitro would relieve chest pain only temporarily. Later administered PO 25mg metoprolol as well as PO Ranexa per cardiology. Since approx 1530 patient has had no significant chest pain episodes, but continues to report low grade 2/10 "pressure" but states "it was nothing like it was". Current tele (as of 1754 on 03/28/17) is SR/huang 58 with PVCs and IVCD, per tele some PVCs occur after T wave.
[2017-03-29] VITALS (7 sets, daily range): BP systolic 117–154; BP diastolic 55–61; PULSE 52–62; RESP 14–20; O2SAT 93–96
[2017-03-29] MEDS: Ranolazine ER 500 mg ER12 Tablet PO SCH ×3 (00:15→21:59)
[2017-03-29] MEDS: Sodium Chloride LOK Flush 10 mL Syringe IVFLUSH SCH ×4 (00:30→23:26)
[2017-03-29] MEDS: 0.9% Sodium Chloride 1,000 ML IV SCH ×2 (03:35→16:09)
--- NOTE | 2017-03-29 05:29 | NUR ---
Metoprolol Withheld HS Metoprolol due to extreme bradycardia (30, 32 per monitoring engineer) Pt asymptomatic. Chest pain remained 2/10 throughout the night. Denies SOB with rest. Will continue to monitor. Call light within reach, using appropriately. Frequent rounding in place. Pleasant and cooperative with care.
[2017-03-29 06:13] LABS: BASOPHILS % (AUTO) 0.4 % (0-3); EOSINOPHILS % (AUTO) 3.4 % (0-5); MONOCYTES % (AUTO) 9.6 % (4-12); Mean Corpuscular Hemoglobin 29.6 pg (27.0-35.0); Mean Corpuscular Volume 93.4 fL (81-100); NEUTROPHILS % (AUTO) 76.5 % (40-74); Platelet Count 238 bil/L (150-400)
[2017-03-29] MEDS: Calcium Carbonate (Oyster Shell) 500 mg Tablet PO SCH (08:10)
[2017-03-29] MEDS: Pantoprazole 20 mg ER24 Tablet PO SCH ×2 (08:10→16:09)
[2017-03-29] MEDS: Multivit-Miner-Folic Acid-Iron Tablet PO SCH (08:11)
--- NOTE | 2017-03-29 08:39 | PCM.PNMED ---
Subjective Date of Service Mar 29, 2017 Subjective Patient seen and examined today. She says her chest pain is better today. Does not complain of melena or bloody bowel movements. Vitals noted. Exam Vital Signs Vital Sign - Last Date Time Temp Pulse Resp B/P Pulse Ox O2 Delivery O2 Flow Rate FiO2 03/29/17 08:13 36.9 61 14 154/56 95 Room Air 03/28/17 08:10 2.00 Intake and Output 03/28/17 03/28/17 03/29/17 Cumulative From/Thru 14:59 22:59 06:59 03/26/17 21:20 - 03/29/17 04:40 Intake Total 200 ml 2477 ml 6124 ml Output Total 900 ml 1000 ml 3050 ml Balance -700 ml 1477 ml 3074 ml Intake Oral 200 ml 1100 ml 2260 ml IV Total 1377 ml 3864 ml Output Urine Total 900 ml 1000 ml 3050 ml # Voids 1 1 # Bowel Movements 0 0 0 Exam GENERAL: Alert, not in distress, cooperative SKIN: Skin color normal, turgor normal. No visible rashes or lesions. EAR, NOSE, MOUTH, THROAT: Lips, oral mucosa, tongue gums, oropharynx are moist , pink, no lesions. RESPIRATORY: Lungs clear to auscultation. Good diaphragmatic excursion. Normal percussion sound. CARDIAC: normal S1 and S2; no rubs, murmurs, or gallops; regular rate and rhythm ABDOMEN: Abdomen soft, tender. BS normal. No masses or organomegaly. EXTREMITIES: no pitting edema in LE, no new deformities or skin discoloration. NEURO: Alert, oriented X 3, Sensation grossly intact., Cranial nerves II-XII intact, Grossly normal motor function. Lab and Diagnostics Result Diagram: 03/29/1731 03/29/17 0531 X-Rays, CTs and MRIs Chest x-ray performed 03/26/2017 IMPRESSION: Acute disease is not seen in the upright portable chest. Dictated by: Damon Waddell M.D. on 03/26/2017 at 22:01 CT angiogram chest performed 03/27/2017 Conclusion: 1. No evidence of pulmonary embolism or thoracic aortic dissection. 2. 2cm opacity in the right lung apex could be part of the bilateral apical scarring although malignancy is not entirely excluded. CT followup in 1 to 3 months is recommended. Abdomen: Conclusion: No abdominal aortic dissection. Signed by Dr. 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 Cardiac Echo Impressions Interpretation Summary 1) Normal left ventricular size, wall motion, and systolic function (EF 60- 65%). 2) Normal right ventricular size and function. 3) Mild to perhaps moderate aortic stenosis present (planimeter valve area 1.6cm2, mean gradient 28mmHg). 4) Pulmonary artery systolic pressure estimated at 34mmHg. 5) Compared to the Echo done 08/01/2015, aortic stenosis has progressed slightly. Assessment & Plan 86-year-old woman with history of coronary artery disease, peripheral artery disease, chronic GI bleed preventing anticoagulation and antiplatelet therapy presents presented with chest pain, radiation through her chest to between her shoulder blades. Patient was evaluated for aortic dissection, and pulmonary embolism with CT scan of chest and abdomen, official report is pending though in the H&P it says that it was ruled out. Troponin is mildly elevated and stable. Unstable angina. 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 She had acute episode of unstable angina yesterday, requiring to start heparin drip - Troponin trended up Plan - Continue with IV fluids - Echo noted as above - started on heparin drip, aspirin, nitro patch, metoprolol - patient does not want any invasive procedure, however ok with aggressive medical management, cardiology on board - c/w Atorvastatin 40 mg Chronic GI bleed - Hgb trended down - will monitor Acute on chronic kidney injury - stabilizing - Patient received CT chest and abdomen with contrast yesterday Plan - Continue with IV fluids COPD - Stable - Continue with current meds - duonebs helped - CT chest findings (2.2 cm ground glass opacity) noted, patient to follow up outpatient for further work up Patient is noted to inpatient status with greater than 2 midnights anticipated stay based on presenting symptoms, complexity of care and anticipated risk of adverse events. DVT prophylaxis with SCDs Bowel regimen as needed Pain management acetaminophen. Code status:DNR/DNI Disposition: discharge in 1-3 days after patient improves. Labs, radiology tests, Tele and ECG reviewed. Plan of care, medication side effects, home medication, diagnostic procedures and available alternatives were discussed and reviewed with patient. All questions answered. Patient verbalized understanding, approved and agreed to plan of care. Given patient's current condition, I certify, in my opinion inpatient services greater than two midnights are medically necessary for this patient. Please see H&P and MD progress notes for additional information about patient's course of treatment. GI Prophylaxis: Not indicated VTE Mechanical Devices: Intermittant Pneumatic CD Resuscitation Status: DNR/DNI:Do Not Resuscitate/Intubate Time spent 35 mins Kris Turk MD Mar 29, 2017 08:39
--- NOTE | 2017-03-29 09:00 | NUR ---
DAIJA signed VARSHA Carmen
--- NOTE | 2017-03-29 18:03 | NUR ---
Shift: VSS, pt reports that chest pain is minimal/tolerable, tele SB/SR 50s-60s, RA O2 sats 95%. Tolerating PO intake, reports one episode of loose stools. Up with SBA, reports that chest pain increases with activity, but settles easily with rest. Heparin gtt continues at 825u/hr. Family at bedside, updated on plan of care, care ongoing.
[2017-03-29] MEDS: LORazepam 0.5 mg Tablet PO PRN (21:59)
[2017-03-30] VITALS (9 sets, daily range): BP systolic 133–172; BP diastolic 52–74; PULSE 45–73; RESP 16–18; O2SAT 92–97
[2017-03-30] MEDS: 0.9% Sodium Chloride 1,000 ML IV SCH (05:21)
--- NOTE | 2017-03-30 06:32 | NUR ---
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 Prior to administration HR 50's. Asymptomatic with bradycardia. Currently resting in bed without any complaints.
[2017-03-30] MEDS: Sodium Chloride LOK Flush 10 mL Syringe IVFLUSH SCH ×3 (08:30→21:29)
[2017-03-30] MEDS: Pantoprazole 20 mg ER24 Tablet PO SCH ×2 (08:33→16:43)
[2017-03-30] MEDS: Multivit-Miner-Folic Acid-Iron Tablet PO SCH (08:33)
[2017-03-30] MEDS: Calcium Carbonate (Oyster Shell) 500 mg Tablet PO SCH (08:34)
[2017-03-30] MEDS: Ranolazine ER 500 mg ER12 Tablet PO SCH ×2 (08:34→21:26)
--- NOTE | 2017-03-30 09:17 | PCM.PNMED ---
Subjective Date of Service Mar 30, 2017 Subjective Patient seen and examined today. She says her chest pain is much better. No bloody bowel movements. No melena. Vitals noted. Exam Vital Signs Vital Sign - Last Date Time Temp Pulse Resp B/P Pulse Ox O2 Delivery O2 Flow Rate FiO2 03/30/17 06:18 56 03/30/17 05:41 18 93 Room Air 03/30/17 05:38 36.8 167/74 03/28/17 08:10 2.00 Intake and Output 03/29/17 03/29/17 03/30/17 Cumulative From/Thru 15:00 23:00 07:00 03/26/17 21:20 - 03/30/17 05:39 Intake Total 100 ml 1828 ml 200 ml 8252 ml Output Total 3050 ml Balance 100 ml 1828 ml 200 ml 5202 ml Intake Oral 100 ml 520 ml 200 ml 3080 ml IV Total 1308 ml 0 ml 5172 ml Output Urine Total 3050 ml # Voids 4 6 2 13 # Bowel Movements 0 0 Exam GENERAL: Alert, not in distress, cooperative SKIN: Skin color normal, turgor normal. No visible rashes or lesions. EAR, NOSE, MOUTH, THROAT: Lips, oral mucosa, tongue gums, oropharynx are moist , pink, no lesions. RESPIRATORY: Lungs clear to auscultation. Good diaphragmatic excursion. Normal percussion sound. CARDIAC: normal S1 and S2; no rubs, murmurs, or gallops; regular rate and rhythm ABDOMEN: Abdomen soft, tender. BS normal. No masses or organomegaly. EXTREMITIES: no pitting edema in LE, no new deformities or skin discoloration. NEURO: Alert, oriented X 3, Sensation grossly intact., Cranial nerves II-XII intact, Grossly normal motor function. Lab and Diagnostics Result Diagram: 03/30/17 0550 03/29/17 0531 X-Rays, CTs and MRIs Chest x-ray performed 03/26/2017 IMPRESSION: Acute disease is not seen in the upright portable chest. Dictated by: Damon Waddell M.D. on 03/26/2017 at 22:01 CT angiogram chest performed 03/27/2017 Conclusion: 1. No evidence of pulmonary embolism or thoracic aortic dissection. 2. 2cm opacity in the right lung apex could be part of the bilateral apical scarring although malignancy is not entirely excluded. CT followup in 1 to 3 months is recommended. Abdomen: Conclusion: No abdominal aortic dissection. Signed by Dr. 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 Cardiac Echo Impressions Interpretation Summary 1) Normal left ventricular size, wall motion, and systolic function (EF 60- 65%). 2) Normal right ventricular size and function. 3) Mild to perhaps moderate aortic stenosis present (planimeter valve area 1.6cm2, mean gradient 28mmHg). 4) Pulmonary artery systolic pressure estimated at 34mmHg. 5) Compared to the Echo done 08/01/2015, aortic stenosis has progressed slightly. Assessment & Plan 86-year-old woman with history of coronary artery disease, peripheral artery disease, chronic GI bleed preventing anticoagulation and antiplatelet therapy presents presented with chest pain, radiation through her chest to between her shoulder blades. Patient was evaluated for aortic dissection, and pulmonary embolism with CT scan of chest and abdomen, official report is pending though in the H&P it says that it was ruled out. Troponin is mildly elevated and stable. Unstable angina. 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 - Troponin trended up and then trended down again Plan - Echo noted as above - stop heparin drip, will start imdur 15mg Qdaily (titrate up based on pain and blood pressure), aspirin, statin, beta mara and ranolazine - patient does not want any invasive procedure, however ok with aggressive medical management, cardiology on board - c/w Atorvastatin 40 mg Chronic GI bleed - Hgb stable - will monitor Acute on chronic kidney injury - stabilizing Plan - Continue with IV fluids COPD - Stable - Continue with current meds - duonebs helped - CT chest findings (2.2 cm ground glass opacity) noted, patient to follow up outpatient for further work up Patient is noted to inpatient status with greater than 2 midnights anticipated stay based on presenting symptoms, complexity of care and anticipated risk of adverse events. DVT prophylaxis with SCDs Bowel regimen as needed Pain management acetaminophen. Code status:DNR/DNI Disposition: discharge in 1-3 days after patient improves. Labs, radiology tests, Tele and ECG reviewed. Plan of care, medication side effects, home medication, diagnostic procedures and available alternatives were discussed and reviewed with patient. All questions answered. Patient verbalized understanding, approved and agreed to plan of care. Given patient's current condition, I certify, in my opinion inpatient services greater than two midnights are medically necessary for this patient. Please see H&P and MD progress notes for additional information about patient's course of treatment. GI Prophylaxis: Not indicated VTE Mechanical Devices: Intermittant Pneumatic CD Resuscitation Status: DNR/DNI:Do Not Resuscitate/Intubate Time spent 35 mins Kris Turk MD Mar 30, 2017 09:16
[2017-03-30] MEDS ORDERED: Isosorbide Mononitrate 30 mg ER24 Tablet PO ONE (11:10)
[2017-03-30] MEDS: LORazepam 0.5 mg Tablet PO PRN (21:26)
[2017-03-31] VITALS (12 sets, daily range): BP systolic 112–160; BP diastolic 56–71; PULSE 40–74; RESP 16–20; O2SAT 93–97
[2017-03-31 05:24] LABS: BASOPHILS % (AUTO) 0.4 % (0-3); EOSINOPHILS % (AUTO) 2.6 % (0-5); MONOCYTES % (AUTO) 10.8 % (4-12); Mean Corpuscular Hemoglobin 29.2 pg (27.0-35.0); Mean Corpuscular Volume 90.7 fL (81-100); Platelet Count 243 bil/L (150-400)
--- NOTE | 2017-03-31 06:21 | NUR ---
Uneventful night Pt denies any CP all shift, reports some mild pressure with activity. Pt appears asleep off and on.
[2017-03-31] MEDS: Pantoprazole 20 mg ER24 Tablet PO SCH ×2 (08:01→16:45)
[2017-03-31] MEDS: Ranolazine ER 500 mg ER12 Tablet PO SCH ×2 (08:01→21:17)
[2017-03-31] MEDS: Multivit-Miner-Folic Acid-Iron Tablet PO SCH (08:01)
[2017-03-31] MEDS: Calcium Carbonate (Oyster Shell) 500 mg Tablet PO SCH (08:01)
[2017-03-31] MEDS: Sodium Chloride LOK Flush 10 mL Syringe IVFLUSH SCH ×2 (08:02→16:46)
[2017-03-31] MEDS ORDERED: Isosorbide Mononitrate 30 mg ER24 Tablet PO SCH (08:30)
[2017-03-31 12:16] LABS: Creatine Kinase 93 U/L (21-215)
--- NOTE | 2017-03-31 14:20 | NUR ---
Evaluation completed. Please go to "Notes" then click on "Assessments and Notes" (bottom left corner of screen). Then select appropriate discipline tab on top of screen.
[2017-03-31] MEDS ORDERED: Isosorbide Mononitrate 30 mg ER24 Tablet PO ONE (14:30)
[2017-03-31] MEDS: LORazepam 0.5 mg Tablet PO PRN (21:17)
[2017-04-01] VITALS (12 sets, daily range): BP systolic 99–177; BP diastolic 54–79; PULSE 45–65; RESP 16–18; O2SAT 93–97
[2017-04-01 05:45] LABS: BASOPHILS % (AUTO) 0.2 % (0-3); EOSINOPHILS % (AUTO) 2.7 % (0-5); MONOCYTES % (AUTO) 11.6 % (4-12); Mean Corpuscular Hemoglobin 29.4 pg (27.0-35.0); Mean Corpuscular Volume 90.8 fL (81-100); NEUTROPHILS % (AUTO) 72.9 % (40-74); Platelet Count 257 bil/L (150-400)
[2017-04-01 06:24] LABS: Creatine Kinase 67 U/L (21-215)
[2017-04-01 06:26] LABS: TROPONIN T 0.066 ug/L (0.0-0.011)
--- NOTE | 2017-04-01 06:33 | NUR ---
No CP Pt denies any CP all shift, denies dizziness when getting up.
--- NOTE | 2017-04-01 08:19 | NUR ---
Social Work-readiness for discharge: Data:EMR reviewed. Pt is on day 5 of hospitalization for chest pain per H&P. Pt is not medically stable anticipate 1-2 more days. Pt resides at home alone, but on her daughter's property.PT has seen pt and recommended home with cardiac rehab. No anticipated discharge needs identified. SW will continue to follow if needs arise. Assessment:Pt who is independent at baseline. Plan:Pt to discharge home when medically stable via POV. No anticipated discharge needs identified. SW will continue to follow if needs arise. VARSHA Cagle
--- NOTE | 2017-04-01 09:11 | PCM.PNMED ---
Subjective Date of Service Mar 31, 2017, Late note Subjective Patient seen and examined. Chest pain controlled. vitals notd. Exam Vital Signs Vital Sign - Last Date Time Temp Pulse Resp B/P Pulse Ox O2 Delivery O2 Flow Rate FiO2 04/01/17 08:50 65 04/01/17 08:20 16 95 Room Air 04/01/17 05:02 36.7 160/72 03/28/17 08:10 2.00 Intake and Output 03/31/17 03/31/17 04/01/17 Cumulative From/Thru 15:00 23:00 07:00 03/26/17 21:20 - 04/01/17 05:54 Intake Total 1375 ml 200 ml 18776 ml Output Total 3050 ml Balance 1375 ml 200 ml 8227 ml Intake Oral 1375 ml 200 ml 6105 ml IV Total 5172 ml Output Urine Total 3050 ml # Voids 8 1 34 # Bowel Movements 0 0 1 Exam GENERAL: Alert, not in distress, cooperative SKIN: Skin color normal, turgor normal. No visible rashes or lesions. EAR, NOSE, MOUTH, THROAT: Lips, oral mucosa, tongue gums, oropharynx are moist , pink, no lesions. RESPIRATORY: Lungs clear to auscultation. Good diaphragmatic excursion. Normal percussion sound. CARDIAC: normal S1 and S2; no rubs, murmurs, or gallops; regular rate and rhythm ABDOMEN: Abdomen soft, tender. BS normal. No masses or organomegaly. EXTREMITIES: no pitting edema in LE, no new deformities or skin discoloration. NEURO: Alert, oriented X 3, Sensation grossly intact., Cranial nerves II-XII intact, Grossly normal motor function. Lab and Diagnostics Result Diagram: 04/01/17 0505 04/01/17 0505 X-Rays, CTs and MRIs Chest x-ray performed 03/26/2017 IMPRESSION: Acute disease is not seen in the upright portable chest. Dictated by: Damon Waddell M.D. on 03/26/2017 at 22:01 CT angiogram chest performed 03/27/2017 Conclusion: 1. No evidence of pulmonary embolism or thoracic aortic dissection. 2. 2cm opacity in the right lung apex could be part of the bilateral apical scarring although malignancy is not entirely excluded. CT followup in 1 to 3 months is recommended. Abdomen: Conclusion: No abdominal aortic dissection. Signed by Dr. 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 Cardiac Echo Impressions Interpretation Summary 1) Normal left ventricular size, wall motion, and systolic function (EF 60- 65%). 2) Normal right ventricular size and function. 3) Mild to perhaps moderate aortic stenosis present (planimeter valve area 1.6cm2, mean gradient 28mmHg). 4) Pulmonary artery systolic pressure estimated at 34mmHg. 5) Compared to the Echo done 08/01/2015, aortic stenosis has progressed slightly. Assessment & Plan 86-year-old woman with history of coronary artery disease, peripheral artery disease, chronic GI bleed preventing anticoagulation and antiplatelet therapy presents presented with chest pain, radiation through her chest to between her shoulder blades. Patient was evaluated for aortic dissection, and pulmonary embolism with CT scan of chest and abdomen, official report is pending though in the H&P it says that it was ruled out. Troponin is mildly elevated and stable. Unstable angina. 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 - Troponin trended up and then trended down again Plan - Echo noted as above - stop heparin drip, will start imdur 15mg Qdaily (titrate up based on pain and blood pressure), aspirin, statin, beta mara and ranolazine - patient does not want any invasive procedure, however ok with aggressive medical management, cardiology on board - Tele : 2.1 second pauses, not concerning as per cardiology - CK MB within normal limis - c/w Atorvastatin 40 mg Chronic GI bleed - Hgb stable - will monitor Acute on chronic kidney injury - stabilizing Plan - Continue with IV fluids HTN - bp elevated plan: - on metoporol , losartan 25 mg started - will monitor COPD - Stable - Continue with current meds - duonebs helped - CT chest findings (2.2 cm ground glass opacity) noted, patient to follow up outpatient for further work up Patient is noted to inpatient status with greater than 2 midnights anticipated stay based on presenting symptoms, complexity of care and anticipated risk of adverse events. DVT prophylaxis with SCDs Bowel regimen as needed Pain management acetaminophen. Code status:DNR/DNI Disposition: discharge in 1-3 days after patient improves. Labs, radiology tests, Tele and ECG reviewed. Plan of care, medication side effects, home medication, diagnostic procedures and available alternatives were discussed and reviewed with patient. All questions answered. Patient verbalized understanding, approved and agreed to plan of care. Given patient's current condition, I certify, in my opinion inpatient services greater than two midnights are medically necessary for this patient. Please see H&P and MD progress notes for additional information about patient's course of treatment. GI Prophylaxis: Not indicated VTE Mechanical Devices: Intermittant Pneumatic CD Resuscitation Status: DNR/DNI:Do Not Resuscitate/Intubate Time spent 35 mins Kris Turk MD Apr 01, 2017 09:11
[2017-04-01] MEDS: Ranolazine ER 500 mg ER12 Tablet PO SCH ×2 (09:21→20:39)
[2017-04-01] MEDS: Isosorbide Mononitrate 30 mg ER24 Tablet PO SCH (09:22)
[2017-04-01] MEDS: Pantoprazole 20 mg ER24 Tablet PO SCH ×2 (09:22→18:13)
[2017-04-01] MEDS: Multivit-Miner-Folic Acid-Iron Tablet PO SCH (09:22)
[2017-04-01] MEDS: Calcium Carbonate (Oyster Shell) 500 mg Tablet PO SCH (09:22)
[2017-04-01] MEDS: Sodium Chloride LOK Flush 10 mL Syringe IVFLUSH SCH ×4 (09:23→23:09)
--- NOTE | 2017-04-01 09:28 | PCM.PNMED ---
Subjective Date of Service Apr 01, 2017 Subjective Patient seen and examined today. Her chest pain is completely resolved. Vitals noted. Exam Vital Signs Vital Sign - Last Date Time Temp Pulse Resp B/P Pulse Ox O2 Delivery O2 Flow Rate FiO2 04/01/17 08:50 65 04/01/17 08:20 16 95 Room Air 04/01/17 05:02 36.7 160/72 03/28/17 08:10 2.00 Intake and Output 03/31/17 03/31/17 04/01/17 Cumulative From/Thru 14:59 22:59 06:59 03/26/17 21:20 - 04/01/17 05:54 Intake Total 1375 ml 200 ml 21277 ml Output Total 3050 ml Balance 1375 ml 200 ml 8227 ml Intake Oral 1375 ml 200 ml 6105 ml IV Total 5172 ml Output Urine Total 3050 ml # Voids 8 1 34 # Bowel Movements 0 0 1 Exam GENERAL: Alert, not in distress, cooperative SKIN: Skin color normal, turgor normal. No visible rashes or lesions. EAR, NOSE, MOUTH, THROAT: Lips, oral mucosa, tongue gums, oropharynx are moist , pink, no lesions. RESPIRATORY: Lungs clear to auscultation. Good diaphragmatic excursion. Normal percussion sound. CARDIAC: normal S1 and S2; no rubs, murmurs, or gallops; regular rate and rhythm ABDOMEN: Abdomen soft, tender. BS normal. No masses or organomegaly. EXTREMITIES: no pitting edema in LE, no new deformities or skin discoloration. NEURO: Alert, oriented X 3, Sensation grossly intact., Cranial nerves II-XII intact, Grossly normal motor function. Lab and Diagnostics Result Diagram: 04/01/17 0505 04/01/17 0505 X-Rays, CTs and MRIs Chest x-ray performed 03/26/2017 IMPRESSION: Acute disease is not seen in the upright portable chest. Dictated by: Damon Waddell M.D. on 03/26/2017 at 22:01 CT angiogram chest performed 03/27/2017 Conclusion: 1. No evidence of pulmonary embolism or thoracic aortic dissection. 2. 2cm opacity in the right lung apex could be part of the bilateral apical scarring although malignancy is not entirely excluded. CT followup in 1 to 3 months is recommended. Abdomen: Conclusion: No abdominal aortic dissection. Signed by Dr. 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 Cardiac Echo Impressions Interpretation Summary 1) Normal left ventricular size, wall motion, and systolic function (EF 60- 65%). 2) Normal right ventricular size and function. 3) Mild to perhaps moderate aortic stenosis present (planimeter valve area 1.6cm2, mean gradient 28mmHg). 4) Pulmonary artery systolic pressure estimated at 34mmHg. 5) Compared to the Echo done 08/01/2015, aortic stenosis has progressed slightly. Assessment & Plan 86-year-old woman with history of coronary artery disease, peripheral artery disease, chronic GI bleed preventing anticoagulation and antiplatelet therapy presents presented with chest pain, radiation through her chest to between her shoulder blades. Patient was evaluated for aortic dissection, and pulmonary embolism with CT scan of chest and abdomen, official report is pending though in the H&P it says that it was ruled out. Troponin is mildly elevated and stable. Unstable angina. 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 - chest pain resolved - Troponins stabilized, CK MB WNL Plan - Echo noted as above - IMDUR increased to 30mg, aspirin, statin, beta mara and ranolazine - patient does not want any invasive procedure, however ok with aggressive medical management, cardiology on board - Tele : 2.1 second pauses, not concerning as per cardiology - c/w Atorvastatin 40 mg Chronic GI bleed - Hgb stable - will monitor Acute on chronic kidney injury - stabilizing Plan - Continue with IV fluids HTN - bp elevated plan: - on metoporol , losartan 25 mg started - will titrate meds as needed COPD - Stable - Continue with current meds - duonebs helped - CT chest findings (2.2 cm ground glass opacity) noted, patient to follow up outpatient for further work up Patient is noted to inpatient status with greater than 2 midnights anticipated stay based on presenting symptoms, complexity of care and anticipated risk of adverse events. DVT prophylaxis with SCDs Bowel regimen as needed Pain management acetaminophen. Code status:DNR/DNI Disposition: discharge in 1-3 days after patient improves. Labs, radiology tests, Tele and ECG reviewed. Plan of care, medication side effects, home medication, diagnostic procedures and available alternatives were discussed and reviewed with patient. All questions answered. Patient verbalized understanding, approved and agreed to plan of care. Given patient's current condition, I certify, in my opinion inpatient services greater than two midnights are medically necessary for this patient. Please see H&P and MD progress notes for additional information about patient's course of treatment. GI Prophylaxis: Not indicated VTE Mechanical Devices: Intermittant Pneumatic CD Resuscitation Status: DNR/DNI:Do Not Resuscitate/Intubate Time spent 35 mins Kris Turk MD Apr 01, 2017 09:28
--- NOTE | 2017-04-01 15:56 | NUR ---
Discharged from PT Pt has met all mobility goals and is discharged from PT service to [facility] ambulating with NSG with monitoring of BP.
[2017-04-01] MEDS: LORazepam 0.5 mg Tablet PO PRN (20:45)
[2017-04-01] MEDS ORDERED: 0.9% Sodium Chloride 500 ML IV ONE (23:35)
--- NOTE | 2017-04-02 01:24 | NUR ---
CARDIAC PAIN (Back pain) Shortly prior to 2229, pt reports "pain in my back". Pt rates pain "5, but nothing like how it was when I was first admitted." EKG ordered. VS obtained, pulse 50s, BP 177/79. Pt given 1 tab nitro, pt stated, "it's a little better, but not much." BP retaken, 99/54 after 1 tab nitro. Noc hospitalist notified, rec'd orders for NS bolus prior to administering IV morphine. BP improved to 141/58, pulse remains in 50s. IV morphine 2mg administered, pt stated, "it's much better, not really pain, just a little uncomfortable." When reassessed again, pt sleeping. Continue to monitor.
[2017-04-02 04:43] VITALS: BP 128/62; PULSE 56; RESP 18; O2SAT 93
[2017-04-02 06:38] LABS: TROPONIN T 0.071 ug/L (0.0-0.011)
[2017-04-02] MEDS ORDERED: levoFLOXacin 250 mg Tablet PO SCH (07:30)
[2017-04-02 07:50] VITALS: PULSE 57; RESP 18; O2SAT 94
[2017-04-02] MEDS: Ranolazine ER 500 mg ER12 Tablet PO SCH (08:08)
[2017-04-02] MEDS: Calcium Carbonate (Oyster Shell) 500 mg Tablet PO SCH (08:08)
[2017-04-02] MEDS: Pantoprazole 20 mg ER24 Tablet PO SCH (08:08)
[2017-04-02] MEDS: Multivit-Miner-Folic Acid-Iron Tablet PO SCH (08:08)
[2017-04-02] MEDS: Sodium Chloride LOK Flush 10 mL Syringe IVFLUSH SCH (08:09)
[2017-04-02] MEDS: Isosorbide Mononitrate 30 mg ER24 Tablet PO SCH (08:09)
--- NOTE | 2017-04-02 09:13 | PCM.PNMED ---
Subjective Date of Service Apr 02, 2017 Subjective Patient seen and examined today. She said she had one episode of pain between shoulder blades last night. Required nitroglycerin, vitals stable. Exam Vital Signs Vital Sign - Last Date Time Temp Pulse Resp B/P Pulse Ox O2 Delivery O2 Flow Rate FiO2 04/02/17 07:50 57 18 94 Room Air 04/02/17 04:43 36.7 128/62 03/28/17 08:10 2.00 Intake and Output 04/01/17 04/01/17 04/02/17 Cumulative From/Thru 15:00 23:00 07:00 03/26/17 21:20 - 04/02/17 06:16 Intake Total 1250 ml 750 ml 94327 ml Output Total 2075 ml 200 ml 5325 ml Balance -825 ml 550 ml 7952 ml Intake Oral 1250 ml 250 ml 7605 ml IV Total 500 ml 5672 ml Output Urine Total 2075 ml 200 ml 5325 ml # Voids 3 37 # Bowel Movements 0 0 1 Lab and Diagnostics Result Diagram: 04/01/17 0505 04/02/17 0520 X-Rays, CTs and MRIs Chest x-ray performed 03/26/2017 IMPRESSION: Acute disease is not seen in the upright portable chest. Dictated by: Damon Waddell M.D. on 03/26/2017 at 22:01 CT angiogram chest performed 03/27/2017 Conclusion: 1. No evidence of pulmonary embolism or thoracic aortic dissection. 2. 2cm opacity in the right lung apex could be part of the bilateral apical scarring although malignancy is not entirely excluded. CT followup in 1 to 3 months is recommended. Abdomen: Conclusion: No abdominal aortic dissection. Signed by Dr. 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 Cardiac Echo Impressions Interpretation Summary 1) Normal left ventricular size, wall motion, and systolic function (EF 60- 65%). 2) Normal right ventricular size and function. 3) Mild to perhaps moderate aortic stenosis present (planimeter valve area 1.6cm2, mean gradient 28mmHg). 4) Pulmonary artery systolic pressure estimated at 34mmHg. 5) Compared to the Echo done 08/01/2015, aortic stenosis has progressed slightly. Assessment & Plan 86-year-old woman with history of coronary artery disease, peripheral artery disease, chronic GI bleed preventing anticoagulation and antiplatelet therapy presents presented with chest pain, radiation through her chest to between her shoulder blades. Patient was evaluated for aortic dissection, and pulmonary embolism with CT scan of chest and abdomen, official report is pending though in the H&P it says that it was ruled out. Troponin is mildly elevated and stable. Unstable angina. 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 - chest pain resolved overall, except on incident last night - Troponins stabilized, CK MB WNL Plan - Echo noted as above - IMDUR increased to 30mg, aspirin, statin, beta mara and ranolazine - patient does not want any invasive procedure, however ok with aggressive medical management, cardiology on board - Tele : 2.1 second pauses, not concerning as per cardiology - c/w Atorvastatin 40 mg Chronic GI bleed - Hgb stable - will monitor Acute on chronic kidney injury - stabilizing Plan - Continue with IV fluids HTN - bp better controlled today plan: - on metoporol , losartan 25 mg started - will titrate meds as needed COPD - Stable - Continue with current meds - duonebs helped - CT chest findings (2.2 cm ground glass opacity) noted, patient to follow up outpatient for further work up Patient is noted to inpatient status with greater than 2 midnights anticipated stay based on presenting symptoms, complexity of care and anticipated risk of adverse events. DVT prophylaxis with SCDs Bowel regimen as needed Pain management acetaminophen. Code status:DNR/DNI Disposition: discharge in 1-3 days after patient improves. Labs, radiology tests, Tele and ECG reviewed. Plan of care, medication side effects, home medication, diagnostic procedures and available alternatives were discussed and reviewed with patient. All questions answered. Patient verbalized understanding, approved and agreed to plan of care. Given patient's current condition, I certify, in my opinion inpatient services greater than two midnights are medically necessary for this patient. Please see H&P and progress notes for additional information about patient's course of treatment. GI Prophylaxis: Not indicated VTE Mechanical Devices: Intermittant Pneumatic CD Resuscitation Status: DNR/DNI:Do Not Resuscitate/Intubate Kris Turk MD Apr 02, 2017 09:13
[2017-04-02 09:50] VITALS: BP 149/67; PULSE 57; RESP 18; O2SAT 94
[2017-04-02 10:30] VITALS: PULSE 71
[2017-04-02] MEDS ORDERED: ISOS30TA4 PO (10:39)
[2017-04-02] MEDS ORDERED: LOSA25TA2 PO (10:39)
[2017-04-02] MEDS ORDERED: METO25TA6 PO (10:39)
[2017-04-02] MEDS ORDERED: CIPR-198 PO (10:39)
--- NOTE | 2017-04-02 10:40 | PCM.DIMED ---
Discharge Instructions Date of Service Apr 02, 2017 Dates of Hospitalization Mar 27, 2017 at 02:13 Discharge Diagnosis Discharge Diagnosis Unstable angina UTI Medication Instructions Additional med instructions nitroglycerin SL q5mins, max 3 at a time. Watch for bp. Diet Discharge Diet: Heart Healthy Activity Discharge Activity: No restrictions Call your provider Call your provider for: Fever or Chills, Shortness of breath, Bleeding, Chest pain, Vomitting, Excessive diarrhea Patient Instructions Follow-up plan Ostomy Care Nurse in 1 week. Follow-up with PCP in: 1 week (CT chest findings (2.2 cm ground glass opacity) noted, patient to follow up outpatient for further work up) Kris Turk MD Apr 02, 2017 10:40
[2017-04-02] MEDS ORDERED: RANO500T3 PO (10:43)
[2017-04-02] MEDS ORDERED: NITR0.4T6 SL (10:43)
[2017-04-02 11:32] VITALS: BP 176/69
[2017-04-02 11:44] VITALS: BP 146/73
--- NOTE | 2017-04-02 11:59 | PCM.DC.MED ---
Discharge Summary Date of Service Apr 02, 2017 Dates of Hospitalization Date of Hospital Admission Mar 27, 2017 at 02:13 Date of Discharge: Apr 02, 2017 Providers: Admitting Physician: Audelia Bernal DO Primary Care Physician: Maxi Soriano MD Attending Physician: Betsey Landeros MD Diagnosis at Time of Discharge Diagnosis at Time of Discharge Unstable angina UTI Procedures XRay, CTs & MRIs Chest x-ray performed 03/26/2017 IMPRESSION: Acute disease is not seen in the upright portable chest. Dictated by: Damon Waddell M.D. on 03/26/2017 at 22:01 CT angiogram chest performed 03/27/2017 Conclusion: 1. No evidence of pulmonary embolism or thoracic aortic dissection. 2. 2cm opacity in the right lung apex could be part of the bilateral apical scarring although malignancy is not entirely excluded. CT followup in 1 to 3 months is recommended. Abdomen: Conclusion: No abdominal aortic dissection. Signed by Dr. 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 Cardiac Echo Impression Interpretation Summary 1) Normal left ventricular size, wall motion, and systolic function (EF 60- 65%). 2) Normal right ventricular size and function. 3) Mild to perhaps moderate aortic stenosis present (planimeter valve area 1.6cm2, mean gradient 28mmHg). 4) Pulmonary artery systolic pressure estimated at 34mmHg. 5) Compared to the Echo done 08/01/2015, aortic stenosis has progressed slightly. Brief History 86-year-old woman with history of coronary artery disease status post 3 stent placement, chronic GI bleeding necessitating blood transfusion every 4-6 weeks for the last 12 years, peripheral artery disease, hypertension, hypothyroidism, COPD, presents after having 8 out of 10 stabbing back pain. She describes it as awakening her from sleep earlier this afternoon felt like there is something in her back and she tried to ignore it however it continued to grow in intensity , 2 hours after onset of pain she took nitroglycerin which she said helped the pain. She contacted her daughter who advised her to go to the emergency department, and while in the emergency department she began to once again have stabbing back pain. She additionally describes having a choking sensation that has been coming and going over the last 4 days, described as "I could not catch my breath." She endorsed shortness of breath, and took a puff of her albuterol inhaler but said that it did not help. She is not on any blood thinners secondary to her chronic blood loss anemia. She reports that in the previous weeks her hemoglobin and hematocrit had remained stable and she has not needed a transfusion. She denies any lightheadedness, dizziness, cough, endorses diarrhea, denies any red or black stools. In the emergency department she was given nitroglycerin metoprolol 5 mg IV 3, 81 mg aspirin by mouth, and at the time of admission states that she feels a mild discomfort in her anterior chest but not a pain. On presentation to the emergency department 36.6 Celsius, 63, 12, 166/78, 97% on room air. Blood pressure decreased and is now in the low 100s, mid 90s systolic. Heart rate has mostly been below 60, she states this is normal and denies any symptoms. WBC 9.6, hemoglobin 9.8. Bicarbonate 16, BUN 43, creatinine 1.66, glucose 106. CK-MB 7.1, troponin 0.011, BNP 474. INR 0.94, d-dimer 2.11 digoxin 0.3 EKG: Heart rate 63, normal sinus, left axis deviation, right bundle branch block , DE 204, QTC 452, T-wave inversions in leads V1, V2. Chest x-ray did not show acute disease. Chest and abdomen CT with contrast are performed to evaluate for pulmonary embolism, aortic dissection, these were interpreted as negative for both. Patient was admitted to [facility] on telemetry for further evaluation unstable angina. Hospital Course 86-year-old woman with history of coronary artery disease, peripheral artery disease, chronic GI bleed preventing anticoagulation and antiplatelet therapy presents presented with chest pain, radiation through her chest to between her shoulder blades. Patient was evaluated for aortic dissection, and pulmonary embolism with CT scan of chest and abdomen, official report is pending though in the H&P it says that it was ruled out. Troponin is mildly elevated and stable. Unstable angina. 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 - chest pain resolved overall, except on incident last night - Troponins stabilized, CK MB WNL Plan - Echo noted as above - IMDUR increased to 30mg, aspirin, statin, beta mara and ranolazine - patient does not want any invasive procedure, however ok with aggressive medical management, cardiology on board - Tele : 2.1 second pauses, not concerning as per cardiology - c/w Atorvastatin 40 mg Chronic GI bleed - Hgb stable - will monitor Acute on chronic kidney injury - stabilizing Plan - Continue with IV fluids HTN - bp better controlled today plan: - on metoporol , losartan 25 mg started - continue current meds, follow outpatient COPD - Stable - Continue with current meds - josué helped - CT chest findings (2.2 cm ground glass opacity) noted, patient to follow up outpatient for further work up Exam Vital Signs (Last) Date Time Temp Pulse Resp B/P Pulse Ox O2 Delivery O2 Flow Rate FiO2 04/02/17 11:44 146/73 04/02/17 10:30 71 04/02/17 09:50 36.9 18 94 Room Air 03/28/17 08:10 2.00 Test 03/26/17 21:45 03/27/17 03:15 03/27/17 04:25 03/28/17 05:15 Prothrombin Time 10.0sec (8.1-12.5) Prothromb Time International Ratio 0.94ratio D-Dimer 2.11mg/L FEU (<0.50) Total Bilirubin 0.2mg/dL (0.0-1.2) Aspartate Amino Transf (AST/SGOT) 24U/L (0-50) Alanine Aminotransferase (ALT/SGPT) 13U/L (0-32) Alkaline Phosphatase 64U/L (25-165) Pro-B-Type Natriuretic Peptide 474.5pg/mL (0-738) Total Protein 6.9g/dL (6.4-8.4) Albumin 4.2g/dL (3.4-5.0) Hold [place] Top Tube Received (Received) Digoxin Level 0.3nG/mL (0.9-2.0) Urine Color Straw (YELLOW) Urine Appearance Clear (CLEAR,HAZY) Urine pH 5.5 (5.0-8.0) Urine Specific [place] 1.010 (1.003-1.035) Urine Protein Tracemg/dL (NEG,TRACE) Urine Glucose (UA) Negativemg/dL (NEGATIVE) Urine Ketones Negativemg/dL (NEGATIVE) Urine Occult Blood Negative (NEGATIVE) Urine Nitrite Negative (NEGATIVE) Urine Bilirubin Negative (NEGATIVE) Urine Urobilinogen Normalmg/dL (NORMAL) Urine Leukocyte Esterase Negative (NEGATIVE) Urine RBC 0-2/hpf (0-2) Urine WBC 0-5/hpf (0-5) Urine Epithelial Cells Occasional/hpf (NONE-MOD) Urine Crystals None seen (NONE SEEN) Urine Bacteria Many/hpf (NONE-FEW) Urine Hyaline Casts None/lpf (NONE) Urine Granular Casts None seen (NONE SEEN) Urine Waxy Casts None seen (NONE SEEN) Urine Red Blood Cell Casts None seen (NONE SEEN) Urine White Blood Cell Casts None seen (NONE SEEN) Urine Mucus None seen (None Seen) Urine Trichomonas None seen (NONE SEEN) Urine Yeast None (NONE SEEN) Urinalysis Comment None Urine Culture Reflexed Indicated Hemoglobin A1c 5.9% (4.8-5.6) Magnesium Level 2.0mg/dL (1.6-2.6) Thyroid Stimulating Hormone (TSH) 1.090uIU/mL (0.450-4.500) Triglycerides Level 186mg/dL (0-149) Cholesterol Level 123mg/dL (100-199) LDL Cholesterol, Calculated 49.800mg/dL (0-99) VLDL Cholesterol 37.200mg/dL HDL Cholesterol 36mg/dL (>39) Cholesterol/HDL Ratio 3.42 (0.0-4.4) Test 03/30/17 08:17 04/01/17 05:05 04/02/17 05:20 Activated Partial Thromboplast Time 81.5sec (22.8-33.0) White Blood Count 8.3th/mm3 (3.8-10.1) Red Blood Count 3.06mil/mm3 (3.90-5.20) Hemoglobin 9.0g/dL (12.0-15.6) Hematocrit 27.8% (35.0-46.0) Mean Corpuscular Volume 90.8fL (81-100) Mean Corpuscular Hemoglobin 29.4pg (27.0-35.0) Mean Corpuscular Hemoglobin Concent 32.4% (32.0-37.0) Red Cell Distribution Width 14.5% (12.3-15.4) Platelet Count 257bil/L (150-400) Neutrophils (%) (Auto) 72.9% (40-74) Lymphocytes (%) (Auto) 12.5% (14-46) Monocytes (%) (Auto) 11.6% (4-12) Eosinophils (%) (Auto) 2.7% (0-5) Basophils (%) (Auto) 0.2% (0-3) Total Creatine Kinase 67U/L (21-215) Creatine Kinase MB 2.8ng/mL (0.0-5.3) Creatine Kinase MB % % (0.0-5.0) Sodium Level 140mEq/L (134-144) Potassium Level 4.0mEq/L (3.5-5.2) Chloride Level 105mEq/L (97-108) Carbon Dioxide Level 19mmol/L (18-29) Blood Urea Nitrogen 23mg/dL (8-27) Creatinine 1.33mg/dL (0.57-1.00) Estimat Glomerular Filtration Rate 54mL/min (>59) Glucose Level 87mg/dL (60-99) Calcium Level 8.7mg/dL (8.5-10.1) Troponin T 0.071ug/L (0.0-0.011) Discharge Medications Discharge Medications Alendronate/Vitamin D3 (Alendronate/Vitamin D3) 1 Each Tablet 70 MG PO Q Saturday (Reported) Amlodipine (Amlodipine) 10 Mg Tablet 10 MG PO QAM (Reported) Atorvastatin Calcium (Atorvastatin Calcium) 40 Mg Tablet 40 MG PO HS (Reported) Calcium Carbonate (Calcium) 600 Mg Tablet 600 MG PO QAM (Reported) Cholecalciferol (Vitamin D3) (Vitamin D3) 1,000 Unit Tab.chew 1,000 UNIT PO BID (Reported) Ciprofloxacin (Ciprofloxacin) 500 Mg Tablet 500 MG PO BID Prescribed by: BETSEY LANDEROS MD Ferrous Gluconate (Ferrous Gluconate) 240 Mg Tablet 27 MG PO BID (Reported) Isosorbide MN ER (Isosorbide MN ER) 30 Mg Tab.er.24h 30 MG PO 0730 Prescribed by: BETSEY LANDEROS MD Levothyroxine (Levoxyl) 75 Mcg Tablet 75 MCG PO QAM (Reported) Lisinopril (Lisinopril) 20 Mg Tablet 20 MG PO QAM (Reported) Losartan Potassium (Cozaar) 25 Mg Tablet 25 MG PO DAILY Prescribed by: BETSEY LANDEROS MD Metoprolol Succinate ER (Metoprolol Succinate ER) 25 Mg Tab.er.24h 12.5 MG PO DAILY (Reported) Metoprolol Tartrate (Metoprolol Tartrate) 25 Mg Tablet 25 MG PO BID Prescribed by: BETSEY LANDEROS MD Multivits-Min/FA/Lycopene/Lut (Centrum Silver Tablet) 1 Each Tablet 1 EACH PO QAM (Reported) Nitroglycerin SL (Nitroglycerin SL) 0.4 Mg Tab.subl 0.4 MG SL Q5MIN Prescribed by: BETSEY LANDEROS MD Omeprazole (Omeprazole) 20 Mg Capsule.dr 20 MG PO BID (Reported) Ranolazine ER (Ranexa) 500 Mg Tablet.er 500 MG PO BID Prescribed by: BETSEY LANDEROS MD As needed Albuterol Sulfate (Ventolin HFA Inhaler) 200 Puff/18 Gm Inhaler 1 PUFF IH PRN For Shortness of Breath (Reported) Fluticasone Propionate (Flovent HFA 110 mcg) 12 Gm Aer.w.adap 1 PUFF IH PRN For Shortness of Breath (Reported) Lorazepam (Ativan) 0.5 Mg Tablet 0.5-1 MG PO HS PRN PRN Insomnia (Reported) Nitroglycerin SL (Nitroglycerin SL) 0.4 Mg Tab.subl 0.4 MG SL PRN For Chest Pain (Reported) Miscellaneous Medications Calcium Carbonate (Calcium) 600 Mg Tablet 600 MG PO (Reported) Vit C/Vit E/Lutein/Min/[place]-3 (Ocuvite Softgel) 1 Each Capsule 1 EACH PO ( Reported) Additional med instructions nitroglycerin SL q5mins, max 3 at a time. Watch for bp. Followup Plan Follow-up plan [employer] [facility] in 1 week. Discharge Diet: Heart Healthy Discharge Activity: No restrictions Follow-up with PCP in: 1 week Time spent 35 mins Betsey Landeros MD Apr 02, 2017 11:59
--- NOTE | 2017-04-02 12:30 | NUR ---
Social Work- discharge: Data:EMR reviewed. Pt is on day 6 of hospitalization for chest pain per H&P. Pt is medically stable today. Pt resides at home alone, but on her daughter's property.PT has seen pt and recommended home. No anticipated discharge needs identified. All updated and agreeable to plan. Assessment:Pt who is independent at baseline. Plan:Pt to discharge home today via POV. No anticipated discharge needs identified. All updated and agreeable to plan. VARSHA Cagle
--- NOTE | 2017-04-02 14:20 | NUR ---
Discharge Patient discharge to home with all belongings at 1317. Explained to patient new medications (ciprofloxacin, metoprolol, nitroglycerin, losartan, isosorbide mononitrate, ranolazine), when next dose are due and discharge instructions. Dc'd IV intact. Dc'd telemetry. Vitals stable. Patient left floor via wheelchair accompanied by DIETARY AIDE and family with no signs of distress.
== END 2017-04-02 13:16 | disposition home or self-care (01) | DRG 302 ==
LOC: SED 21:14 → MPC 03-27 02:13
PROVIDERS: ADMIT Internal Medicine; ATTEND Internal Medicine
DX: I25.110 Atherosclerotic heart disease of native coronary artery with unstable angina pectoris (principal); K55.21 Angiodysplasia of colon with hemorrhage; N17.9 Acute kidney failure, unspecified; N39.0 Urinary tract infection, site not specified; I44.0 Atrioventricular block, first degree; I73.9 Peripheral vascular disease, unspecified; D50.0 Iron deficiency anemia secondary to blood loss (chronic); E03.9 Hypothyroidism, unspecified; Z95.5 Presence of coronary angioplasty implant and graft; Z87.891 Personal history of nicotine dependence; I12.9 Hypertensive chronic kidney disease with stage 1 through stage 4 chronic kidney disease, or unspecified chronic kidney disease; N18.3 Chronic kidney disease, stage 3 (moderate); J44.9 Chronic obstructive pulmonary disease, unspecified